=== PATIENT | male | born 1955 | race Caucasian/White ===

== ENCOUNTER 2023-05-14 10:14 | Outpatient (RCR) | payer OTHER, SELFPAY | END 2023-05-16 23:59 | disposition home or self-care (01) | LOC: RPT 10:14 | PROVIDERS: ATTENDING PHYSICIAN Neurological Surgery; FAMILY PHYSICIAN Family Medicine | DX: D49.6 Neoplasm of unspecified behavior of brain (principal); Z73.6 Limitation of activities due to disability | CPT/HCPCS: 97110; 97112; 97530; 97535 ==

== ENCOUNTER 2023-06-27 13:34 | Outpatient (RCR) | payer OTHER, SELFPAY | END 2023-06-27 23:59 | disposition home or self-care (01) | LOC: RST 13:34 | PROVIDERS: ATTENDING PHYSICIAN Psychiatry & Neurology Neurology; FAMILY PHYSICIAN Neurological Surgery | DX: C71.1 Malignant neoplasm of frontal lobe (principal); Z73.6 Limitation of activities due to disability; R26.89 Other abnormalities of gait and mobility; M62.81 Muscle weakness (generalized); Z95.5 Presence of coronary angioplasty implant and graft | CPT/HCPCS: 92507; 92523; 97110; 97112; 97116; 97163; 97167; 97530 ==

== ENCOUNTER 2023-06-30 13:23 | Emergency (ER) | payer OTHER, SELFPAY ==
[2023-06-30 13:45] VITALS: BP 139/83
--- NOTE | 2023-06-30 16:48 | ED.GENMED ---
History of Present Illness
General
Chief Complaint: DVT/Possible Blood Clot
Source: patient
Exam Limitations: none
Time Seen by Provider: 06/30/23 16:36
Travel History
Have you had any contact with someone who has COVID-19?: No
Do you have any symptoms of coronavirus? Fever > 100 degrees, chills, cough, shortness of breath, sore throat, loss of taste or smell, muscle aches, or headache?: No
History of Present Illness
History of Present Illness:
68-year-old male with history of brain cancer being followed at [facility] was several months ago just finished radiation presents complaining of swelling to the right lower extremity getting worse over the past 3 to 4 days. No associated
injury. No associated chest pain or shortness of breath. No prior history of DVT. He is on a baby aspirin. He is on dexamethasone 8 mg daily for his recent brain surgery.
Past History
Past History
ED Past Medical History: Hypercholesterolemia
Social History
Tobacco: Non-smoker
Alcohol: Other (Was previously a heavy drinker but been cutting back over the last 6 months)
Drug: None
Personal:
Living: with family
Employment: Employed
Family History
Family History: Other (Mother with diabetes and hyperlipidemia. Father with hypertension)
Phy Exam
Physical Exam
Physical Exam:
General: Well-appearing male no acute respiratory distress
HEENT: Normocephalic atraumatic
Heart: Regular rate and rhythm no murmurs
Lungs: Clear to auscultation bilaterally no wheezing
Extremities: Edema noted right lower extremity from the knee down this is mild. No calf tenderness. No discomfort upon palpation of the popliteal space of the right knee.
Skin: Overlying skin is without erythema or fluctuance. No lymphangitis
Vascular: 2+ dorsalis pedis pulse right foot right leg with good color
Course
Orders/Labs/Results
Orders:
Orders
06/30/23 13:50
Periph Venous Lwr Ext Rt US [US Periph Venous LOWER Ext RT] Urgent
Comment:
Reason For Exam: swelling
06/30/23 17:12
Apixaban [Eliquis] 10 mg PO NOW STA
Vital Signs
Initial and Last Documented VS:
Initial Vital Signs
Temp Pulse Resp BP Pulse Ox
98.2 F 79 20 139/83 95
06/30/23 13:45 06/30/23 13:45 06/30/23 13:45 06/30/23 13:45 06/30/23 13:45
Last Documented Vital Signs
Temp Pulse Resp BP Pulse Ox
98.2 F 70 18 139/74 95
06/30/23 13:45 06/30/23 17:55 06/30/23 17:55 06/30/23 17:55 06/30/23 17:55
MDM/Problems Addressed
Differential Diagnosis Includes:
Swelling to right leg. Differential could include dependent edema versus DVT versus Dickson's cyst. No clinical concern for cellulitis.
Ultrasound right lower extremity pending
*Critical Care Note
Total Time (30-74mins, 75-104mins- exclusive of procedures): Not Applicable
Update Note
Update Note:
Ultrasound right lower extremity demonstrates evidence of DVT. Patient is several months out from her brain surgery. Benefits of treating the DVT outweigh the potential risks. Started on Eliquis 10 mg twice a day for a week. He is seeing a
specialist this coming week I advise he follow-up with them regarding this. Return precautions were given including signs of bleeding from gastrointestinal tract or tract. I also advised him to avoid NSAIDs. He was told to stop his baby
aspirin as well
ED Attending Note
-
Portions of this chart may have been created with voice recognition software.� Occasional wrong word or��sound alike� substitutions may have occurred due to the inherent limitations of voice recognition software.
Discharge Plan
Departure
Patient Disposition: Home (Routine Discharge)
Date of Disposition: 06/30/23
Time of Disposition: 17:21
Patient with high blood pressure during this ER visit?: No
Discharge Problem:
DVT (deep venous thrombosis)
Instructions: Deep Vein Thrombosis (Blood Clots in the Legs) (DC)
Prescriptions:
New
Eliquis 5 mg tablet
5 mg PO BID Qty: 60 0RF
Rx Instructions:
Take 10mg twice a day for one week. Then decrease to 5mg twice a day
No Action
atorvastatin 80 MG tablet
80 mg PO QPM Qty: 90 3RF
aspirin 81 MG tablet,delayed release (DR/EC)
81 mg PO DAILY Qty: 30 0RF
metoprolol succinate 25 MG tablet extended release 24 hr
25 mg PO DAILY Qty: 90 3RF
Interventions
Interventions:
*Risk Screen - Suicide Last Done: 06/30/23 17:01
*General Assessment Last Done: 06/30/23 17:01
*Neglect/Abuse Screening Last Done: 06/30/23 17:01
ED- Fall Risk Assessment Last Done: 06/30/23 17:01
*ED COVID-19 Vaccine History Last Done: 06/30/23 17:01
*Nursing Disposition Last Done: 06/30/23 17:55
ED- Cardiac Assessment Last Done: 06/30/23 17:01
ED- Pulmonary Assessment Last Done: 06/30/23 17:01
ED-Peripheral Vascular Assessment Last Done: 06/30/23 17:01
ED-Skin Assessment Last Done: 06/30/23 17:01
Discharge Date and Time
Discharge Date/Time: 06/30/23 17:55
[2023-06-30 17:01] VITALS: BMI 32.4
[2023-06-30 17:15] VITALS: BP 139/74
[2023-06-30] MEDS: ELIQUIS 10 MG PO (17:19)
[2023-06-30 17:55] VITALS: BP 139/74
--- NOTE | 2023-06-30 17:55 | EDRN ---
Reviewed discharge instructions with patient and his . Verbalized understanding. Taken to car in wheelchair.
== END 2023-06-30 17:55 | disposition home or self-care (01) ==
LOC: EMR 13:23
PROVIDERS: EMERGENCY PHYSICIAN Student in an Organized Health Care Education/Training Program; FAMILY PHYSICIAN Family Medicine
DX: I82.401 Acute embolism and thrombosis of unspecified deep veins of right lower extremity (principal); R60.0 Localized edema; C71.9 Malignant neoplasm of brain, unspecified; E78.00 Pure hypercholesterolemia, unspecified; Z92.3 Personal history of irradiation; Z98.890 Other specified postprocedural states; Z79.82 Long term (current) use of aspirin
CPT/HCPCS: 99284; 93971

== ENCOUNTER 2023-07-11 04:56 | Inpatient (IN) | payer OTHER, SELFPAY ==
[2023-07-11] VITALS (7 sets, daily range): BP systolic 125–200; BP diastolic 81–107; PULSE 79; O2SAT 95; BMI 32.2
--- NOTE | 2023-07-11 03:08 | ED.GENMED ---
History of Present Illness
<MARY Friend - Last Filed: 07/11/23 03:31>
General
Chief Complaint: Seizure
Source: patient and spouse
Time Seen by Provider: 07/11/23 02:59
Nursing documentation reviewed up to this point in time: agreed with
Travel History
Have you had any contact with someone who has COVID-19?: No
Do you have any symptoms of coronavirus? Fever > 100 degrees, chills, cough, shortness of breath, sore throat, loss of taste or smell, muscle aches, or headache?: No
History of Present Illness
History of Present Illness:
68 y/o M with history of brain tumor presents to ED after seizure. Patient had seizure around 1:30am today. reports patient seizure lasted for about 30 seconds. He did not lose consciousness but was disoriented afterwards. reports he was
breathing through his mouth. Patient is currently on chemo for his brain tumor. He was started on 5 days on, 23 days off. He was also startd on an increased steroid dose last week due to brain swelling. Yesterday was his first day off chemotherapy.
does report patient had a palpitation 2 days ago but states it disappeared when he laid on his side. He currently denies headache, dizziness, chest pain, palpitations, or blurry vision.
Past History
<MARY Friend - Last Filed: 07/11/23 03:31>
Past History
ED Past Medical History: Hypercholesterolemia
Social History
Tobacco: Non-smoker
Alcohol: Other (Was previously a heavy drinker but been cutting back over the last 6 months)
Drug: None
Personal:
Living: with family
Employment: Employed
Family History
Family History: Other (Mother with diabetes and hyperlipidemia. Father with hypertension)
Phy Exam
<MARY Friend - Last Filed: 07/11/23 03:31>
General Physical Exam
General Presentation: well appearing and no apparent distress
General age: appears stated age
General Skin: warm
General Habitus: normal
General Mental: alert
General Hydration: appears well hydrated
ENT Exam
ENT Exam: EOMI
Eye Exam
Eye Exam: PERRL, EOMI, conjunctiva normal and other (no nystagmus )
Cardiovascular Exam
Cardiovascular Exam: regular rate/rhythm, no edema, no gallop and no murmur
Pulmonary Exam
Pulmonary Exam: lungs clear and no respiratory distress
Neurological Exam
Neurological Exam: alert and oriented x3
Course
<MARY Friend - Last Filed: 07/11/23 03:31>
Orders/Labs/Results
Orders:
Orders
07/11/23 02:56
Electrocardiogram (*1) Urgent
Reason for Study: Other
Other Reason for Exam: Possible Stroke
Cardiac Monitoring- Treatment ONCE
EKG- Treatment ONCE
IV Insert/Care/Rem.- Treatment PRN
Vital Signs As Directed
Frequency: Other
Weight As Directed
Frequency: Once
Comment: ZERO STRETCHER SCALE FOR ACCURATE WEIGHT
O2 Therapy [RESP] Urgent
Titrate/Wean O2 to maintain O2 sat greater than (%): 93
Special Instructions: MAINTAIN CONTINUOUS O2 SATS > OR = 93%
07/11/23 03:00
CT Head W/o Iv Contrast Urgent
Comment:
Reason For Exam: known glio, weakness
07/11/23 03:30
Complete Blood Count/With Diff Urgent
Comprehensive Metabolic Panel Urgent
PTT Urgent
Prothrombin Time Urgent
Troponin I Urgent
07/11/23 04:01
Levetiracetam Injectable [Keppra] 1,000 mg IV NOW STA
07/11/23 04:11
Admit/Transfer Patient As Directed
Co-Sign Provider:
Level of Care: Inpatient admission
Assign to:: Telemetry
Physician / Group: htay
Diagnosis: New onset SZ
Reason for Telemetry: Other
Other Reason for Telemetry: New onset SZ , Rt sided cerebral edema
Date to Stop Telemetry: 07/13/23
Time to Stop Telemetry: 11:00
Reason for Hospitalization: New onset SZ
Expected length of stay greater than two midnights?: Yes
ELOS- Estimated Length of Stay in days: 3
I certify the patient meets the requirements for IP care: Yes
07/11/23 05:33
HydrALAZINE [Apresoline] 10 mg IV Q4HPRN PRN
07/11/23 05:33
Consult Notification Routine
Specialty to Notify: Neurology
NEUROLOGY CONSULT Routine
Consulting Provider: Karin Green
Was physician already notified: No
Reason for consult: Witnessed new onset SZ-HX Glioblastoma resected - s/p XRT, on chemo+ Dexa
07/11/23 06:00
EEG Routine IN AM
Reason for Exam: new onset Sz
Ondansetron HCl [Zofran] 8 mg PO Q8H
07/11/23 08:00
Apixaban [Eliquis] 5 mg PO BID
Dexamethasone [Decadron] 8 mg PO DAILY
Levetiracetam [Keppra] 500 mg PO BID
Metoprolol Xl [Toprol Xl] 25 mg PO DAILY
07/11/23 18:00
Atorvastatin [Lipitor] 80 mg PO QPM
Dexamethasone [Decadron] 6 mg PO QPM
07/13/23 11:00
DC Protocol for Telemetry ONCE
Abnormal Lab Results
07/11/23
03:30
Plt Count 91 L 10^3/uL
(130-400)
Abs Immat Gran (auto) 0.6 H 10^3/uL
(0-0.05)
Absolute Neuts (auto) 9.2 H 10^3/uL
(1.4-6.5)
Absolute Lymphs (auto) 0.5 L 10^3/uL
(1.2-3.4)
Immature Gran % 6.0 H %
(0-0.5)
Neutrophils % 85.7 H %
(42.2-75.2)
Lymphocytes % 4.5 L %
(20.5-51.1)
APTT 23.3 L Sec
(23.4-35.0)
Sodium 134 L mmol/L
(135-145)
BUN 26 H mg/dl
(9-20)
Creatinine 0.6 L mg/dL
(0.7-1.3)
Glucose 184 H mg/dl
(70-99)
Total Bilirubin 1.4 H mg/dl
(0.2-1.3)
ALT 79 H U/L
(0-50)
Total Protein 5.7 L g/dl
(6.3-8.2)
Albumin 3.3 L g/dl
(3.5-5.0)
07/11/23 03:30
07/11/23 03:30
Vital Signs
Initial and Last Documented VS:
Initial Vital Signs
Temp Pulse Resp
97.6 F 80 19
07/11/23 02:52 07/11/23 02:52 07/11/23 02:52
Last Documented Vital Signs
Temp Pulse Resp BP Pulse Ox
97.6 F 64 18 157/89 93
07/11/23 05:54 07/11/23 05:54 07/11/23 05:54 07/11/23 05:54 07/11/23 05:54
<Wilfrid Laureano DO - Last Filed: 07/11/23 06:41>
Orders/Labs/Results
Orders:
Orders
07/11/23 02:56
Electrocardiogram (*1) Urgent
Reason for Study: Other
Other Reason for Exam: Possible Stroke
Cardiac Monitoring- Treatment ONCE
EKG- Treatment ONCE
IV Insert/Care/Rem.- Treatment PRN
Vital Signs As Directed
Frequency: Other
Weight As Directed
Frequency: Once
Comment: ZERO STRETCHER SCALE FOR ACCURATE WEIGHT
O2 Therapy [RESP] Urgent
Titrate/Wean O2 to maintain O2 sat greater than (%): 93
Special Instructions: MAINTAIN CONTINUOUS O2 SATS > OR = 93%
07/11/23 03:00
CT Head W/o Iv Contrast Urgent
Comment:
Reason For Exam: known glio, weakness
07/11/23 03:30
Complete Blood Count/With Diff Urgent
Comprehensive Metabolic Panel Urgent
PTT Urgent
Prothrombin Time Urgent
Troponin I Urgent
07/11/23 04:01
Levetiracetam Injectable [Keppra] 1,000 mg IV NOW STA
07/11/23 04:11
Admit/Transfer Patient As Directed
Co-Sign Provider:
Level of Care: Inpatient admission
Assign to:: Telemetry
Physician / Group: htay
Diagnosis: New onset SZ
Reason for Telemetry: Other
Other Reason for Telemetry: New onset SZ , Rt sided cerebral edema
Date to Stop Telemetry: 07/13/23
Time to Stop Telemetry: 11:00
Reason for Hospitalization: New onset SZ
Expected length of stay greater than two midnights?: Yes
ELOS- Estimated Length of Stay in days: 3
I certify the patient meets the requirements for IP care: Yes
07/11/23 05:33
HydrALAZINE [Apresoline] 10 mg IV Q4HPRN PRN
07/11/23 05:33
Consult Notification Routine
Specialty to Notify: Neurology
NEUROLOGY CONSULT Routine
Consulting Provider: Karin Green
Was physician already notified: No
Reason for consult: Witnessed new onset SZ-HX Glioblastoma resected - s/p XRT, on chemo+ Dexa
07/11/23 06:00
EEG Routine IN AM
Reason for Exam: new onset Sz
Ondansetron HCl [Zofran] 8 mg PO Q8H
07/11/23 08:00
Apixaban [Eliquis] 5 mg PO BID
Dexamethasone [Decadron] 8 mg PO DAILY
Levetiracetam [Keppra] 500 mg PO BID
Metoprolol Xl [Toprol Xl] 25 mg PO DAILY
07/11/23 18:00
Atorvastatin [Lipitor] 80 mg PO QPM
Dexamethasone [Decadron] 6 mg PO QPM
07/13/23 11:00
DC Protocol for Telemetry ONCE
Abnormal Lab Results
07/11/23
03:30
Plt Count 91 L 10^3/uL
(130-400)
Abs Immat Gran (auto) 0.6 H 10^3/uL
(0-0.05)
Absolute Neuts (auto) 9.2 H 10^3/uL
(1.4-6.5)
Absolute Lymphs (auto) 0.5 L 10^3/uL
(1.2-3.4)
Immature Gran % 6.0 H %
(0-0.5)
Neutrophils % 85.7 H %
(42.2-75.2)
Lymphocytes % 4.5 L %
(20.5-51.1)
APTT 23.3 L Sec
(23.4-35.0)
Sodium 134 L mmol/L
(135-145)
BUN 26 H mg/dl
(9-20)
Creatinine 0.6 L mg/dL
(0.7-1.3)
Glucose 184 H mg/dl
(70-99)
Total Bilirubin 1.4 H mg/dl
(0.2-1.3)
ALT 79 H U/L
(0-50)
Total Protein 5.7 L g/dl
(6.3-8.2)
Albumin 3.3 L g/dl
(3.5-5.0)
07/11/23 03:30
07/11/23 03:30
Vital Signs
Initial and Last Documented VS:
Initial Vital Signs
Temp Pulse Resp
97.6 F 80 19
07/11/23 02:52 07/11/23 02:52 07/11/23 02:52
Last Documented Vital Signs
Temp Pulse Resp BP Pulse Ox
97.6 F 64 18 157/89 93
07/11/23 05:54 07/11/23 05:54 07/11/23 05:54 07/11/23 05:54 07/11/23 05:54
<Wilfrid Laureano DO - Last Filed: 07/11/23 06:41>
*Critical Care Note
Total Time (30-74mins, 75-104mins- exclusive of procedures): Not Applicable
<Wilfrid Laureano DO - Last Filed: 07/11/23 06:41>
Update Note
Update Note:
CT HEAD
IMPRESSION:
Since prior dated 03/18/2023, there has been interval increase in hypodensity and likely edema throughout the left cerebral hemisphere. Effacement of the left lateral ventricle. No significant midline shift. No acute hemorrhage, herniation, or
hydrocephalus. Findings could be further characterized with MRI as clinically indicated.
Evidence of prior left frontal craniotomy.
ED Attending Note
<MARY Friend - Last Filed: 07/11/23 03:31>
-
Portions of this chart may have been created with voice recognition software.� Occasional wrong word or��sound alike� substitutions may have occurred due to the inherent limitations of voice recognition software.
<Wilfrid Laureano DO - Last Filed: 07/11/23 06:41>
ED Attending Note
Patient seen and examined by attending physician: Yes
I performed the substantive portion of visit, reviewed & personally made and approve the management plan that is documented in note by myself or DARCIE.: Yes
ED Attending Note:
This is a pleasant 68-year-old male that presents with new onset seizure tonight. Seizure began around 1:30 AM. reports that the seizure lasted about 30 seconds. Patient sustained a postictal period. Patient is on chemotherapy for a
glioblastoma. Patient had brain swelling last week and was started on a steroid. Patient is on Eliquis for DVT. Patient was seen in conjunction with the PA student. I have reviewed and agree with the history and treatment plan presented. On my
independent physical exam, patient is awake, alert, and somewhat confused. He does have some right-sided weakness. Heart is regular rate and rhythm. Lungs are clear to auscultation bilaterally without wheezes rales or rhonchi.
Vital signs are stable. Patient not hypoxic
Nursing note reviewed. I agree with nursing documentation up to this point in time.
Home Meds and allergies reviewed.
NUMBER AND COMPLEXITY OF PROBLEMS ADDRESSED AT THE ENCOUNTER
� Chronic conditions affecting care:
� Acute Exacerbation and/or Progression of Chronic Illness:
� Differential Diagnosis includes:
AMOUNT AND/OR COMPLEXITY OF DATA TO BE REVIEWED AND ANALYZED
I performed an independent evaluation of the following and my interpretation is:
EKG:
CT:CT HEAD
IMPRESSION:
Since prior dated 03/18/2023, there has been interval increase in hypodensity and likely edema throughout the left cerebral hemisphere. Effacement of the left lateral ventricle. No significant midline shift. No acute hemorrhage, herniation, or
hydrocephalus. Findings could be further characterized with MRI as clinically indicated.
Evidence of prior left frontal craniotomy.
X-rays:
Ultrasound:
Laboratory Studies:
Other:
Review of other/old records: Previous CT angiogram
Clinical information was obtained by an independent historian:
Prescriptions/Medications Considered but not given:
Further testing considered but not performed:
RISK OF COMPLICATIONS AND/OR MORBIDITY OR MORTALITY OF PATIENT MANAGEMENT
Social determinants of health affecting care: Good Social Support
Discussion with other providers: Hospitalist for admission
Escalation of care including admission/observation vs risk of discharge considered: New onset seizure in the setting of a brain tumor. Patient to be admitted
CRITICAL CARE NOTE: Not applicable
Total Time (exclusive of procedures):
Update:
Discharge Plan
Departure
Patient Disposition: Admit
Date of Disposition: 07/11/23
Time of Disposition: 04:02
Admit to: Telemetry
Presentation/result/management discussed w/ accepting MD/DO: Hospitalist
Condition: Fair
Discharge Problem:
New onset seizure
Interventions
Interventions:
*Risk Screen - Suicide Last Done: 07/11/23 02:52
*General Assessment Last Done: 07/11/23 02:52
*Neglect/Abuse Screening Last Done: 07/11/23 02:52
ED- Fall Risk Assessment Last Done: 07/11/23 02:57
*ED COVID-19 Vaccine History Last Done: 07/11/23 02:52
*Nursing Disposition Last Done: 07/11/23 05:30
ED- Cardiac Assessment Last Done: 07/11/23 02:57
ED- Neurological Assessment Last Done: 07/11/23 04:33
ED- Pulmonary Assessment Last Done: 07/11/23 02:57
Discharge Date and Time
Discharge Date/Time: 07/11/23 05:30
[2023-07-11 03:36] LABS: % Basophils 0.4 % (0-2); % Lymphocytes 4.5 % (20.5-51.1); % Monocytes 3.4 % (1.7-9.3); % Neutrophils 85.7 % (42.2-75.2); Absolute Immature Granulocytes 0.6 10^3/uL (0-0.05); Absolute Lymphocytes 0.5 10^3/uL (1.2-3.4); Absolute Monocytes 0.4 10^3/uL (0.1-0.6); Absolute Neutrophils 9.2 10^3/uL (1.4-6.5); Hematocrit 42.7 % (39.0-52.0); Hemoglobin 15.6 g/dL (13.0-18.0); Mean Corp Hgb Conc. 36.5 g/dL (33.0-37.0); Mean Corpuscular Hgb 30.4 pg (27.0-31.0); Mean Corpuscular Volume 83.1 fL (80.0-94.0); Mean Platelet Volume 8.5 fL (7.4-10.4); Nucleated Red Blood Cells % 0.2 % (-); Platelet Count 91 10^3/uL (130-400); Red Blood Cell Count 5.14 10^6/uL (4.70-6.10); Red Cell Dist. Width 13.4 % (11.5-14.5); White Blood Cell Count 10.7 10^3/uL (4.8-10.8)
[2023-07-11 03:49] LABS: APTT 23.3 Sec (23.4-35.0); INR 1.15; PT 14.6 Sec (11.4-14.6)
--- NOTE | 2023-07-11 03:51 | HPS.HSE ---
Family Physician
-
Family Physician:
Chief Complaint
-
Sz at home
History of Present Illness
68M HX brain tumor / Glioblastoma seen at ER for new onset of witnessed seizure.
reports patient seizure lasted for about 30 seconds. He did not lose consciousness but was disoriented afterwards. reports he was started on chemo yesterday.
Currently on chemo on 5 days on, 23 days off.
He was also started on an increased steroid dose last week due to brain swelling.
does report patient had a palpitation 2 days ago but states it disappeared when he laid on his side.
ROS
denies headache, dizziness, chest pain, palpitations, or blurry vision.
Medical History
Past Medical History
Past Medical History: Reports Cancer (brain tumor ) and Hypercholesterolemia
Past Surgical History: Reports Brain (s/p gamma knife resection of brain tumor at [facility] )
Social History
Tobacco: Non-smoker
Alcohol: None
Personal:
Living: With Family
Family History
Family History: Not pertinent
Allergies / Home Medications
Allergies reflects when Allergies were last updated in [facility].
Home Medications with original date entered in [facility]
Allergy/Medication List:
Allergies
Allergy/AdvReac Type Severity Reaction Status Date / Time
No Known Allergies Allergy Verified 07/11/23 02:52
Home Medications
aspirin 81 mg tablet,delayed release 81 mg PO DAILY ##30 09/03/15
atorvastatin 80 mg tablet 80 mg PO QPM ##90 09/03/15
metoprolol succinate 25 mg tablet,extended release 24 hr 25 mg PO DAILY ##90 09/03/15
apixaban 5 mg tablet (Eliquis) 5 mg PO BID #60 tabs 06/30/23
Review of Systems
-
Constitutional: Reports No Symptoms
EENT: Reports No Symptoms
Respiratory: Reports No Symptoms
Cardiac: Reports No Symptoms
Abdomen/GI: Reports No Symptoms
: Reports No Symptoms
Musculoskeletal: Reports No Symptoms
Skin: Reports No Symptoms
Neurological: Reports See HPI
Endocrine: Reports No Symptoms
Hematologic/Lymphatic: Reports No Symptoms
Psych: Reports No Symptoms
Physical Exam
Vital Signs
Vital Signs
Temp Pulse Resp BP Pulse Ox
97.6 F 68 19 189/105 95
07/11/23 02:52 07/11/23 03:45 07/11/23 02:52 07/11/23 03:00 07/11/23 03:45
Physical Exam
General: Other (see below )
Laboratory Results
-
07/11/23 03:30
Data Reviewed
-
CT Scan: Discussed with Physician
Lab Data: Labs Reviewed by me
Impression/Plan
-
Reviewed VS: Afebrile BP 200/107 HR 80
PE
Gen: no apparent distress , sitting and conversational
HEENT: anicteric
Neck: sipple
Lungs: CTA
Cor: RRR S1
Abdomen: soft NT NG
STATE EDITOR: AAO3.Known Rt sided hemiparesis s/p Brain tumor resection
MS: no edema
Psych: appropiate
Data
Unremarkable CBC
HCT
EKG report
NORMAL SINUS RHYTHM
NONSPECIFIC ST ABNORMALITY
ABNORMAL ECG
09/09/20 TTE
LVEF 55-6-
Stage I DD
Nl RV size and function
HCT:
Since prior dated 03/18/2023, there has been interval increase in hypodensity and likely edema throughout the left cerebral hemisphere.
Effacement of the left lateral ventricle.
No significant midline shift.
No acute hemorrhage, herniation, or hydrocephalus.
Findings could be further characterized with MRI as clinically indicated.
Evidence of prior left frontal craniotomy.
No prior hospitalist admission:
ASSESSMENT & PLAN
Witnessed new onset SZ suspect tonic clonic Sz - provoked
S/P post ictal
- HCT
- admission labs
- EEG
- cont. Keppra
- Neuro consult
HX Glioblastoma - currently on escaladed dose of Decadronsince last week due to interval increase in edema throughout the left cerebral hemisphere.
s/p gamma knife resection at [place] s/p XRT and oral chemo
Just started chemo 07/10/22 - 5 days on, 23 days off.
P Oncologist and Neuro surgeon at [facility] [place]
Rad Onc at
Known Rt sided hemiparesis s/p Brain tumor resection
- cont escaladed dose Decadron 8mg am + 6 mg pm
HTN urgency
No prior HX Essential HTN
- await HCT
- cont PT Metoprolol
- add IV Hydralazine PRN
HLD on Atorvastatin
Rt Leg DVT 1 week ago
Known Rt sided hemiparesis s/p tumor resection
- cont Eliquis
- No longer on ASA
DVT Px: on Eliquis
Code: Full
IP TLM
[2023-07-11 04:08] LABS: ALT (SGPT) 79 U/L (0-50); AST (SGOT) 38 U/L (17-59); Albumin 3.3 g/dl (3.5-5.0); Alkaline Phosphatase 65 U/L (38-126); Blood Urea Nitrogen 26 mg/dl (9-20); Calcium 8.9 mg/dl (8.4-10.2); Carbon Dioxide 26 mmol/L (22-30); Chloride 99 mmol/L (98-107); Glucose 184 mg/dl (70-99); Potassium 4.1 mmol/L (3.5-5.1); Sodium 134 mmol/L (135-145); Total Bilirubin 1.4 mg/dl (0.2-1.3); Total Protein 5.7 g/dl (6.3-8.2); eGFR > 60.00
[2023-07-11] MEDS: KEPPRA 1000 MG IV (04:15)
[2023-07-11 04:16] LABS: Troponin I < 0.012 ng/ml
[2023-07-11] MEDS: ZOFRAN PO (05:53)
--- NOTE | 2023-07-11 05:56 | PTCARENOTE ---
Recieved pt from ER at 0540. Pt stood and pivoted to bed due to R sided weakness. AAOx3, VSS. Oriented to room, call cruz and plan of care.
--- NOTE | 2023-07-11 08:55 | CON.NEURO4 ---
Addendum entered and electronically signed by Manuel Cui MD 07/11/23 11:24:
Studies reviewed.
I have personally examined the patient. I reviewed and agree with the SUPPLY CHAIN INTERN's Note.
My addenda:
Awake, alert, interactive. No acute distress.
Speech intact.
Follows 2-step requests w/o difficulty. No tremor.
Extra-ocular movements grossly intact.
Facial movements full and symmetric. Hearing intact to normal conversational volume.
Normal UE movements bilaterally.
Neck: full ROM.
Chest: no dyspnea
Heart: no JVD
Ext: (-) Clubbing, (-) Cyanosis, (-) Edema
IMPRESSIONS/RECOMMENDATIONS:
Abrupt onset of right hemibody seizures suggestive of focal onset seizure most likely secondary to the patient's prior diagnosis of left frontoparietal glioblastoma with prior resection, chemotherapy, and radiation therapy
Increase newly initiated levetiracetam from 500 mg twice a day to dosing of 1000 mg twice a day
Continue dexamethasone
Continue this for recent deep vein thrombosis
Rehabilitation evaluations
Will continue to follow as needed.
Original Note:
Consultation - Neurology 4
-
CONSULTING PHYSICIAN: Manuel Cui MD
REFERRING PHYSICIAN: Hospitalists/Dr. Interiano
DICTATED BY: JOSUE Small
DATE/TIME OF REQUEST: 07/11/23
DATE/TIME OF CONSULTATION: 07/11/23
Reason for Consultation: Seizure
History of Present Illness:
This is a 68-year-old right-handed male who has presented to the hospital with report of seizure at home. Patient is a poor historian and some of this information is obtained from medical records. Patient initially presented to ER on 03/18/23
with report of a two week history of right-sided weakness affecting his ability to kayak and golf, then ultimately he couldn't use a nail clipper with his right hand, prompting him to go to the ER for evaluation. CT head demonstrated a malignant
left frontal lobe brain tumor and he was transferred to [place]. He deferred enrollment in the IMVAX trial and elected to undergo crani for near-total tumor resection by Dr. Duff on 03/21/23. Pathologist was consistent with GBM. He started
chemoradiation on 04/23/23. At an unclear time, patient was found to have a RLE DVT and was started on Eliquis. Additionally, last week his Decadron dosage was increased due to increased vasogenic edema.
This morning around 0130, patient's witnessed the patient having seizure-like activity lasting 30 seconds. Per the patient, he had right body shaking, bit his tongue, and was more disoriented than baseline after the episode. He denies any
bowel/bladder incontinence. This is the first time he has had any events like this and he has had no further events since. Currently, he feels back at his baseline. He denies any headache, dizziness, vision changes, speech/swallow difficulty,
numbness, new weakness, chest pain, palpitations, and shortness of breath. He endorses chronic forgetfulness/confusion and right-sided weakness.
Past Medical History: Left frontal GBM, HTN, HLD, CAD
Surgical History: Cardiac stents
Family History: Reviewed and noncontributory.
Social History: Former heavy drinking. Denies tobacco and illict drug use.
Allergies: No known allergies.
Home Medications: See below.
Review of Symptoms:
Patient denies any fever, headache, chest pain, shortness of breath, GI or symptoms.
�Per the HPI.�All systems are reviewed negative except above.
Physical Exam:
The patient is afebrile, abdomen is nondistended, breathing is unlabored, skin is warm and dry, no edema. +Tongue laceration left tip and right side.
Neurologic Examination:
The patient is awake, alert and oriented x 3 to orientation questions but very forgetful/confused conversation. He is able to follow commands and answer questions appropriately. Moderate difficulty with two-step commands. There is no aphasia or
dysarthria. On cranial nerve assessment, pupils are 3 mm bilateral, round and reactive to light and accommodation. Visual morales are full. Extraocular movements are intact. +Nystagmus beating left. Facial sensations are intact and bilaterally
symmetrical, there is no facial asymmetry. Hearing is intact bilaterally to normal conversation volume. Tongue palate and uvula are midline. +Tongue laceration left tip and right side. Sternocleidomastoid strengths are full bilaterally. Motor
strengths are 5/5 left upper, 5-/5 right upper, 5-/5 right lower, and 5/5 left lower extremities on medical research [place] scale. There is drift in the RUE and RLE. No involuntary movement noted. Deep tendon reflexes are 2+ bilateral upper and
lower extremities and Babinski is absent bilaterally. Sensations of temperature vibration is mildly reduced in distal upper/lower extremities. There was no extinction noted on double simultaneous stimulation. Coordination is intact by finger to
nose bilaterally.
Lab Results: See below.
Neuro Imaging:
1. CT Head 07/11/23: Despite new left frontal craniotomy, with a 4.5 cm left frontal tumor remains present and is associated with significantly worsened vasogenic edema and mass effect compared with previous examination.
2. EEG 07/11/23: Final report pending.
Differentials for the patient's presentation include:
1. Seizure, well-controlled, without status epilepticus.
2. Left frontal GBM with vasogenic edema.
3. RLE DVT
Patient has the following risk factors for their symptoms: GBM
Recommendations:
-Newly initiated levetiracetam increased to 1000mg q12hrs.
-Routine EEG ordered/pending.
-Continue dexamethasone 8mg AM, 6mg PM.
-Do not see a role for further neurological imaging at this time.
-Patient should follow-up with Neurosurgery at [place] and update them about this event.
Discussed patient care with: Dr. Cui, the patient
Vital Signs and Labs
-
Vital Signs and Labs:
Vital Signs
Temp Pulse Resp BP Pulse Ox
97.5 F 60 14 150/97 95
07/11/23 07:10 07/11/23 09:39 07/11/23 07:10 07/11/23 09:39 07/11/23 08:00
Lab Results
07/11/23 03:30
07/11/23 03:30
PT 14.6 Sec (11.4-14.6) 07/11/23 03:30
INR 1.15 07/11/23 03:30
APTT 23.3 Sec (23.4-35.0) L 07/11/23 03:30
Sodium 134 mmol/L (135-145) L 07/11/23 03:30
Potassium 4.1 mmol/L (3.5-5.1) 07/11/23 03:30
BUN 26 mg/dl (9-20) H 07/11/23 03:30
Glucose 184 mg/dl (70-99) H 07/11/23 03:30
Calcium 8.9 mg/dl (8.4-10.2) 07/11/23 03:30
Medications
-
Active Medications
Generic Name Dose Route Start Last Admin
Trade Name Freq PRN Reason Stop Dose Admin
Apixaban 5 mg 07/11/23 08:00 07/11/23 09:38
Apixaban (Eliquis) 5 Mg Tablet PO 08/08/23 07:59 5 mg
BID MIRTA Administration
Atorvastatin Calcium 80 mg 07/11/23 18:00
Atorvastatin (Lipitor) 80 Mg Tablet PO 08/08/23 17:59
QPM MIRTA
Dexamethasone 8 mg 07/11/23 08:00 07/11/23 09:37
Dexamethasone 4 Mg Tablet PO 08/08/23 07:59 8 mg
DAILY MIRTA Administration
Dexamethasone 6 mg 07/11/23 18:00
Dexamethasone 4 Mg Tablet PO 08/08/23 17:59
QPM MIRTA
Hydralazine HCl 10 mg 07/11/23 05:33
Hydralazine 20 Mg/Ml Vial IV 08/08/23 05:32
Q4HPRN PRN
SBP > 165, DBP > 110
Levetiracetam 1,000 mg 07/11/23 08:09
Levetiracetam 500 Mg Regular Release Tablet PO 08/08/23 07:59
BID MIRTA
Metoprolol Succinate 25 mg 07/11/23 08:00 07/11/23 09:39
Metoprolol 25 Mg Extended Release Tablet PO 08/08/23 07:59 25 mg
DAILY MIRTA Administration
Ondansetron HCl 8 mg 07/11/23 06:00 07/11/23 05:53
Ondansetron 4 Mg Tablet PO 08/08/23 05:59 Not Given
Q8H MIRTA
Sodium Chloride 0 flush 07/11/23 06:00
Sodium Chloride 0.9% (Flush) Syringe IV 08/08/23 05:59
PER PROTOCOL MIRTA
Home Medications
Medication Instructions Recorded
metoprolol succinate 25 mg 25 mg PO DAILY ##90 09/03/15
tablet,extended release 24 hr
apixaban 5 mg tablet (Eliquis) 5 mg PO BID #60 tabs 06/30/23
atorvastatin 80 mg tablet 80 mg PO DAILY 07/11/23
dexamethasone 6 mg tablet 6 mg PO DAILY 07/11/23
famotidine 20 mg tablet 20 mg PO BID 07/11/23
ondansetron HCl 8 mg tablet 8 mg PO Q8H 07/11/23
[2023-07-11] MEDS: DECADRON 8 MG PO (09:37)
[2023-07-11] MEDS: ELIQUIS 5 MG PO (09:38)
[2023-07-11] MEDS: TOPROL XL 25 MG PO (09:39)
[2023-07-11] MEDS: KEPPRA 500 MG PO (09:47)
--- NOTE | 2023-07-11 10:27 | CM ---
Patient seen bedside with Chari, initial assessment completed. Patient reports he resides with his in a multiple story home. Per , they have a first floor set up, two steps to enter home. Patient reports using a cane for ambulation, denies
other DME. Patient current with [facility] with PT/OT and speech, denies SNF. Patient confirms PCP Dr. Murcia, pharmacy used [facility]. CM will continue to follow for discharge planning needs.
Plan; home with VN and .
--- NOTE | 2023-07-11 10:45 | VNURNOTE ---
Patient is current with [facility] since 06/30 w/ SN/PT/ST, will monitor progress and plan at discharge.
--- NOTE | 2023-07-11 12:23 | EEG.RPT ---
Electroencephalogram Report
Recording
Date of EE07/11/23
Type of EEG: Routine
Length of EEG recordin minutes
Done with Video Recording: Yes
Patient Status: Inpatient
Recording Conditions: Awake, Drowsy and Asleep
Hyperventilation Performed: Yes
Photic Stimulation Performed: Yes
Report
LESS THAN 1 HOUR EEG INTERPRETATION:
Unremarkable EEG for age
CLINICAL CORRELATION:
A normal EEG does not rule out a diagnosis of epilepsy. If clinical suspicion for seizure persists, a prolonged recording may be warranted.
Clinical correlation is advised.
METHODS:
A 21 channel digitized electroencephalogram (EEG) was performed using the 10/20 international system of electrode placement and one-lead of ECG recorded. The [employer] quantitative EEG system was utilized.
ELECTROENCEPHALOGRAPHER IMPRESSION(S):
Quality of study
Fair-good due to artifact
Background
There was an unremarkable anterior-posterior voltage gradient of alpha frequency.
With eye opening the background activity changed to a low voltage mixture of frequencies.
There were no significant asymmetries of background activity noted.
Sleep
Drowsiness present
Stage 1 present
Hyperventilation
No activation
Photic Stimulation
No activation
ECG
Normal sinus rhythm
--- NOTE | 2023-07-11 12:40 | W.PN.UPDATE ---
Update Note
Progress Note Update
Seen and examined
Nonbillable note
Images/charts reviewed
No further seizure episode post admission
Neurology evaluated and recommended patient to be maintained on Keppra. No need of EEG.
PT evaluation ordered
Contacted Dr. Vega/primary oncologist at [facility] to update, no call back yet.
Possible discharge later today
[2023-07-11] MEDS: ZOFRAN 8 MG PO (14:31)
--- NOTE | 2023-07-13 07:26 | W.DCSUMMARY ---
Discharge Summary
Discharge Data
Date of Admission: 07/11/23
Date of Discharge: 07/11/23
-
Pending Results: No
Hospital Course
Discharging Physician : Dr Kelvin Murcia
Disposition : To home
Primary care physician : Unknown
Principal Discharge diagnosis :
Seizure episode
Chronic Discharge diagnosis :
History glioblastoma multiforme status post gamma knife resection/radiation and on chemotherapy currently
Essential hypertension
Hyperlipidemia
History of recent right leg deep venous thrombosis on Eliquis
Hospital Course :
Patient is a 68-year-old male with above-mentioned past medical history was brought into ER after having new onset of witnessed seizure. Patient spouse saw patient seizing lasting for 30 seconds. Patient has been diagnosed for glioblastoma in
March 26 and have undergone gamma knife resection, radiation and chemotherapy at this point. Patient primary neurologist/neurosurgery in [facility]. In ER patient had a CT head which showed an interval increase in hypodensity
and edema throughout the left cerebral hemisphere. No acute hemorrhage/herniation or hydrocephalus visible. Patient had an outpatient PET scan recently by primary neurologist and patient was placed on increased dose of dexamethasone for worsening
inflammation. Patient evaluated by neurology services and EEG was done. No major abnormal findings on EEG. Patient was loaded with IV Keppra. Post neurology clearance patient was discharged home on oral Keppra with follow-up with primary
neurologist/oncology at [facility].
Important imaging findings :
None
Procedure findings :
None
Discharge Plan
-
Patient Disposition: Home with Home Care
Discharge Diagnosis/Procedures: Seizure episode, Gliblastoma mutiforme
Condition: Fair
Diet: Regular
Activity: As tolerated
Driving Restrictions: No driving
Bathing Restrictions: OK to Shower
Other Services: VN and PT
Referrals:
Socorro Murcia, [Family Provider] - in one week
Prescriptions:
New
dexamethasone 4 mg Tablet
8 mg PO DAILY Qty: 30 0RF
dexamethasone 4 mg Tablet
6 mg PO QPM Qty: 30 0RF
levetiracetam [Keppra] 1,000 mg tablet
1,000 mg PO BID Qty: 60 1RF
Continued
metoprolol succinate 25 MG tablet extended release 24 hr
25 mg PO DAILY Qty: 90 3RF
Eliquis 5 mg tablet
5 mg PO BID Qty: 60 0RF
Rx Instructions:
Take 10mg twice a day for one week. Then decrease to 5mg twice a day
ondansetron HCl 8 mg Tablet
8 mg PO Q8H
dexamethasone 6 mg Tablet
6 mg PO DAILY
famotidine 20 mg Tablet
20 mg PO BID
atorvastatin 80 MG tablet
80 mg PO DAILY
Discharge Orders:
Discharge Patient (As Directed); Ordered 07/11/23
Ordered By: Kelvin Murcia
Discharge Date and Time
Discharge Date/Time: 07/11/23 15:51
== END 2023-07-11 15:51 | disposition home health service (06) | DRG 101 ==
LOC: 4 WEST ACU 04:56
PROVIDERS: ADMITTING PHYSICIAN Internal Medicine; ATTENDING PHYSICIAN Hospitalist; EMERGENCY PHYSICIAN Student in an Organized Health Care Education/Training Program; FAMILY PHYSICIAN Family Medicine; OTHER PHYSICIAN Psychiatry & Neurology Neurology
DX: R56.9 Unspecified convulsions (principal); I16.0 Hypertensive urgency; E78.00 Pure hypercholesterolemia, unspecified; Z86.718 Personal history of other venous thrombosis and embolism; Z85.841 Personal history of malignant neoplasm of brain; Z79.01 Long term (current) use of anticoagulants
CPT/HCPCS: 70450; 80053; 84484; 85025; 85610; 85730; 93005; 95816; 96374; 97162; 97166; 99285

== ENCOUNTER 2023-07-18 16:30 | Emergency (ER) | payer OTHER, SELFPAY ==
[2023-07-18 16:32] VITALS: BP 171/110
--- NOTE | 2023-07-18 19:13 | ED.GENMED ---
History of Present Illness
General
Chief Complaint: Vascular Symptoms
Source: patient and spouse
Time Seen by Provider: 07/18/23 18:35
Travel History
Have you had any contact with someone who has COVID-19?: No
Do you have any symptoms of coronavirus? Fever > 100 degrees, chills, cough, shortness of breath, sore throat, loss of taste or smell, muscle aches, or headache?: No
History of Present Illness
History of Present Illness:
68-year-old male with past medical history of glioblastoma status post gamma knife and radiation treatment, recently diagnosed right lower extremity DVT, hypertension, hyperlipidemia, previous NE presenting to the emergency department for evaluation
at the request of his primary care doctor with whom patient followed up with after he was admitted at this facility last week, family physician was concerned due to the persistent swelling as well as cool right lower extremity to the touch as well
as difficulty palpating a pulse. notes that patient has been readily compliant with Eliquis. She does note that the swelling seems to be getting a little bit worse. Patient has not had any coughing, chest pain, shortness of breath or any
other concerns. History was obtained from the spouse secondary to patient's current mental status.
Past History
Past History
ED Past Medical History: Cancer (Glioblastoma), HTN, Hypercholesterolemia, NE and Seizures
ED Past Surgical History: Other
Social History
Tobacco: Non-smoker
Alcohol: Other (Was previously a heavy drinker but been cutting back over the last 6 months)
Drug: None
Personal:
Living: with family
Employment: Employed
Family History
Family History: Other (Mother with diabetes and hyperlipidemia. Father with hypertension)
Review of Systems
Review of Systems
All Other Systems: ROS reviewed and negative except as documented in HPI and ROS
Phy Exam
Physical Exam
Physical Exam:
GENERAL: Sleepy but arousable to voice, in no apparent distress
EYE: conjunctiva clear
NECK: Supple, no significant adenopathy.
ENT: o/p clr, mmm.
CARDIAC: Regular rate and rhythm
LUNGS: Clear breath sounds bilaterally, no acute respiratory distress, no wheezes/rales/rhonchi
NEUROLOGICAL: Alert and oriented
SKIN: Lower extremities are cool to the touch bilaterally and dry, skin intact.
MUSCULOSKELETAL: Right lower extremity: Moderate edema diffusely to the knee. Cap refill is roughly 2 seconds. Sensation reportedly intact to light touch. Patient allows for full active and passive range of motion. Difficult time palpating a
dorsalis pedis pulse however this was found with a Doppler however was weak and thready. Easily dopplerable PT pulse.
PSYCH: Normal and appropriate interaction.
Scores
Heart Failure Risk
Heart Failure Risk Score: Not Applicable
Heart Score for Chest Pain Patients
STEMI patient?: Not applicable
Withdrawal Assessment of Alcohol
Withdrawal Assessment Completed?: Not applicable
Course
Orders/Labs/Results
Orders:
Orders
07/18/23 16:53
US Periph Arterial LOWER Ext Urgent
Comment: Sent by primary care who could not palpate pulse.
Reason For Exam: cold foot, h/o DVT, on eliquis.
07/18/23 18:51
US Periph Venous LOWER Ext RT Urgent
Comment:
Reason For Exam: dvt, worsening edema
Vital Signs
Initial and Last Documented VS:
Initial Vital Signs
Temp Pulse Resp BP Pulse Ox
97.4 F 72 16 171/110 97
07/18/23 16:32 07/18/23 16:32 07/18/23 16:32 07/18/23 16:32 07/18/23 16:32
Last Documented Vital Signs
Temp Pulse Resp BP Pulse Ox
97.4 F 71 14 156/96 95
07/18/23 16:32 07/18/23 19:23 07/18/23 19:23 07/18/23 19:23 07/18/23 19:23
MDM/Problems Addressed
Differential Diagnosis Includes:
Worsening DVT, peripheral arterial disease, less likely ischemic limb
MDM/Problems Addressed:
68-year-old male with past medical history of glioblastoma, currently has an appointment scheduled with his oncologist in [place] from August 08, newly diagnosed right lower extremity DVT, recently diagnosed seizure presenting back to the
emergency department at request of primary care physician who had concerns for possible arterial compromise. Patient does have dopplerable pulses however the DP pulse is fairly weak and thready. I would like to order a vascular ultrasound to
evaluate if patient's DVT is worsening despite Eliquis. I discussed the case with Dr. Linares from vascular surgery who is also in agreement with obtaining a arterial ultrasound with KAREN to look for arterial disease.
Chronic conditions affecting care: Cancer and Other (DVT)
*Radiology
Radiology exam reviewed: radiology read reviewed
*Pulse Oximetry
Patient hypoxic: no
*Critical Care Note
Total Time (30-74mins, 75-104mins- exclusive of procedures): Not Applicable
Data Reviewed
Review of Other/Old Records Reveals: Labs, Records, Radiology Studies and Discharge Summary
Source: patient and spouse
Patient Management
Discussion with other providers: [employer]
Escalation/DeEscalation of care consider admission/obs:
Patient's arterial ultrasound shows multiphasic waveforms throughout with no significant stenosis. Vascular ultrasound shows stable DVTs with no progression of DVT. Patient was running out of his initial Eliquis prescription. attempted to
get a refill at primary but for some reason they were unable to do so so I provided patient with an additional 1 month supply. Advised continued outpatient management. Aware of return precautions. Stable for discharge home.
ED Attending Note
-
Portions of this chart may have been created with voice recognition software.� Occasional wrong word or��sound alike� substitutions may have occurred due to the inherent limitations of voice recognition software.
Discharge Plan
Departure
Patient Disposition: Home (Routine Discharge)
Date of Disposition: 07/18/23
Time of Disposition: 22:31
Patient with high blood pressure during this ER visit?: Yes
Discharge Problem:
Deep vein thrombosis (DVT) of right lower extremity
Instructions: Deep Vein Thrombosis (Blood Clots in the Legs) (DC)
Prescriptions:
New
Eliquis 5 mg tablet
5 mg PO BID Qty: 60 0RF
No Action
metoprolol succinate 25 MG tablet extended release 24 hr
25 mg PO DAILY Qty: 90 3RF
Eliquis 5 mg tablet
5 mg PO BID Qty: 60 0RF
Rx Instructions:
Take 10mg twice a day for one week. Then decrease to 5mg twice a day
ondansetron HCl 8 mg Tablet
8 mg PO Q8H
dexamethasone 6 mg Tablet
6 mg PO DAILY
famotidine 20 mg Tablet
20 mg PO BID
atorvastatin 80 MG tablet
80 mg PO DAILY
dexamethasone 4 mg Tablet
8 mg PO DAILY Qty: 30 0RF
dexamethasone 4 mg Tablet
6 mg PO QPM Qty: 30 0RF
levetiracetam [Keppra] 1,000 mg tablet
1,000 mg PO BID Qty: 60 1RF
Referrals:
Socorro Murcia, DO [Family Provider] -
Interventions
Interventions:
*Risk Screen - Suicide Last Done: 07/18/23 18:39
*General Assessment Last Done: 07/18/23 18:39
*Neglect/Abuse Screening Last Done: 07/18/23 18:39
ED- Fall Risk Assessment Last Done: 07/18/23 18:39
*ED COVID-19 Vaccine History Last Done: 07/18/23 18:39
ED- Cardiac Assessment Last Done: 07/18/23 18:39
ED- Pulmonary Assessment Last Done: 07/18/23 18:39
ED-Skin Assessment Last Done: 07/18/23 18:39
[2023-07-18 19:23] VITALS: BP 156/96
== END 2023-07-18 22:41 | disposition home or self-care (01) ==
LOC: EMR 16:30
PROVIDERS: EMERGENCY PHYSICIAN Emergency Medicine; FAMILY PHYSICIAN Family Medicine
DX: I82.401 Acute embolism and thrombosis of unspecified deep veins of right lower extremity (principal); R22.41 Localized swelling, mass and lump, right lower limb; C71.9 Malignant neoplasm of brain, unspecified; I10 Essential (primary) hypertension; E78.00 Pure hypercholesterolemia, unspecified; R56.9 Unspecified convulsions; I25.2 Old myocardial infarction; Z92.3 Personal history of irradiation; Z79.01 Long term (current) use of anticoagulants
CPT/HCPCS: 99284; 93925; 93971

== ENCOUNTER 2023-08-12 03:23 | Inpatient (IN) | payer OTHER, SELFPAY ==
[2023-08-11 17:18] VITALS: BP 141/116
--- NOTE | 2023-08-11 17:55 | ED.GENMED ---
History of Present Illness
General
Chief Complaint: Change in Mental Status
Source: patient and spouse
Exam Limitations: none
Time Seen by Provider: 08/11/23 17:20
Nursing documentation reviewed up to this point in time: agreed with
Travel History
Have you had any contact with someone who has COVID-19?: No
Do you have any symptoms of coronavirus? Fever > 100 degrees, chills, cough, shortness of breath, sore throat, loss of taste or smell, muscle aches, or headache?: No
History of Present Illness
History of Present Illness:
Patient is a 68-year-old man with a history of glioblastoma that was recently resected at [facility] this past March 2023. Patient was brought in by his for increased lethargy over the last 2 to 3 days. His reports that he is having
increased generalized weakness on both sides of his body, increased difficulty getting around, decreased appetite and not drinking fluids. She denies any specific symptoms such as difficulty breathing, vomiting or fever. She does note occasional
nonbloody diarrhea. Patient arise lethargic but is able to answer simple questions. He denies any worsening weakness of his chronic weakness on the right. Patient is followed by Dr. Mercedes Vega at [facility]. His also reports
increased agitation at night. Patient denies all pain including headache, chest pain abdominal pain.
Past History
Past History
ED Past Medical History: Cancer (Glioblastoma), HTN, Hypercholesterolemia, IA and Seizures
ED Past Surgical History: Other
Social History
Tobacco: Non-smoker
Alcohol: Other (Was previously a heavy drinker but been cutting back over the last 6 months)
Drug: None
Personal:
Living: with family
Employment: Employed
Family History
Family History: Other (Mother with diabetes and hyperlipidemia. Father with hypertension)
Review of Systems
Review of Systems
Allergies reviewed?: Yes
Other source history: family
All Other Systems: ROS reviewed and negative except as documented in HPI and ROS
Constitutional: Reports fatigue
EENT: Reports no symptoms
Respiratory: Reports no symptoms
Cardiac: Reports no symptoms
ABD/GI: Reports diarrhea and anorexia
: Reports no symptoms
Musculoskeletal: Reports no symptoms
Skin: Reports no symptoms
Neurological: Reports other (Chronic weakness of right face, right arm and right leg which are unchanged today according to his )
Endocrine: Reports no symptoms
Hematologic/Lymphatic: Reports no symptoms
Psychiatric: Reports no symptoms
Phy Exam
Physical Exam
Physical Exam:
Physical Exam
General: Patient with flat affect, appears lethargic, has a gaze preference to the right, however, he does with some prompting look to the left. Pale appearing
Neck: supple. no meningeal signs. Dry mucous membrane
Heart: s1/s2 regular rate and rhythm, no murmur. equal radial pulses.
Lungs: no acute respiratory distress. clear bilaterally
Abdomen: normal bowel sounds. not tender. no CVAT
Neuro: alert and oriented to place and self. Right facial weakness. 4 out of 5 strength in right arm and right leg which patient and report is his baseline. 5 out of 5 strength in left arm and left leg. Patient
able to follow simple commands. Patient able to answer simple questions. Seems extremely sleepy and lethargic. Does not look uncomfortable however
Skin: no rash
Psychiatric: well kept. Flat affect
Extremities: no edema. no calf tenderness. negative homans. good distal pulses
Course
Orders/Labs/Results
Orders:
Orders
08/11/23 17:19
CT Head W/o Iv Contrast Urgent
Comment:
Reason For Exam: change of mental. brain tumor history
08/11/23 18:01
Electrocardiogram (*1) Urgent
Reason for Study: Fatigue / Weakness
EKG- Treatment ONCE
08/11/23 18:02
CR Chest - 2 Views Urgent
Comment:
Reason For Exam: lethargy
08/11/23 18:16
COVID-19 Antigen Urgent
Source: Nasal Swab
Complete Blood Count/With Diff Urgent
Comprehensive Metabolic Panel Urgent
Keppra (Levetiracetam) [S] Urgent
Lactic Acid Urgent
Lipase Urgent
Monotest Urgent
TSH Urgent
Troponin I Urgent
Influenza A+B Rapid Molecular Urgent
DESTINY Source: Nasal Swab
Specimen Description:
0.9% Sodium Chloride 500 ml [Nss] 500 ml IV BOLUS
08/11/23 18:54
Urinalysis Reflex To Culture Urgent
Date Specimen was Collected: 08/11/23
Time Specimen was Collected: 18:15
08/11/23 19:01
0.9% Sodium Chloride 1000 ml [Nss] 1,000 ml IV BOLUS
08/11/23 19:03
US Abdomen Complete/Upper Urgent
Comment:
Reason For Exam: increased LFTs, MS change
Specimen Description:
08/11/23 19:44
Ammonia Urgent
Blood Culture Q30M
DESTINY Source: Blood/Venous
Specimen Description:
Blood Culture Q30M
DESTINY Source: Blood/Venous
Specimen Description:
08/11/23 21:21
Levetiracetam [Keppra] 1,000 mg PO NOW STA
08/11/23 22:18
Apixaban [Eliquis] 5 mg PO NOW STA
Abnormal Lab Results
08/11/23 08/11/23 08/11/23
18:16 18:54 19:44
RBC 4.49 L 10^6/uL
(4.70-6.10)
Hct 37.0 L %
(39.0-52.0)
Plt Count 63 L 10^3/uL
(130-400)
Abs Immat Gran (auto) 0.3 H 10^3/uL
(0-0.05)
Absolute Lymphs (auto) 0.3 L 10^3/uL
(1.2-3.4)
Immature Gran % 5.0 H %
(0-0.5)
Neutrophils % 88.1 H %
(42.2-75.2)
Lymphocytes % 4.5 L %
(20.5-51.1)
Sodium 131 L mmol/L
(135-145)
Creatinine 0.4 L mg/dL
(0.7-1.3)
Glucose 264 H mg/dl
(70-99)
Lactic Acid 3.8 H mmol/L
(0.7-2.0)
Total Bilirubin 1.5 H mg/dl
(0.2-1.3)
AST 103 H U/L
(17-59)
ALT 530 H* U/L
(0-50)
Alkaline Phosphatase 223 H U/L
(38-126)
Ammonia < 9 L umol/L
(9-30)
Total Protein 5.3 L g/dl
(6.3-8.2)
Albumin 3.2 L g/dl
(3.5-5.0)
TSH 0.24 L uIU/ml
(0.47-4.68)
Urine Ketones 1+ A
(Negative)
Urine Glucose 3+ A
(Negative)
08/11/23 18:16
08/11/23 18:16
Vital Signs
Initial and Last Documented VS:
Initial Vital Signs
Temp Pulse Resp BP Pulse Ox
98.0 F 103 17 141/116 97
08/11/23 17:18 08/11/23 17:18 08/11/23 17:18 08/11/23 17:18 08/11/23 17:18
Last Documented Vital Signs
Temp Pulse Resp BP Pulse Ox
98.0 F 67 13 130/77 97
08/11/23 17:18 08/11/23 22:45 08/11/23 22:45 08/11/23 22:00 08/11/23 22:45
MDM/Problems Addressed
Differential Diagnosis Includes:
Hyponatremia, intracranial hemorrhage, sepsis, seizure
MDM/Problems Addressed:
Patient presents with acute lethargy
Chronic conditions affecting care:
Brain cancer
Acute Exacerbation and/or Progression of Chronic Illness:
Patient could have acute on chronic brain edema from brain cancer
*Radiology
Radiology exam reviewed: preliminary read by ED provider (Possible atelectasis left lower lung base) and radiology read reviewed
*Pulse Oximetry
Patient hypoxic: no
*EKG
Interpreted by ED Provider?: Yes
Interpretation: abnormal
Comparison EKG: changes noted
Rate: normal
Rhythm: sinus
[place]: normal axis
Interval: normal interval
QRS Pattern: normal QRS
Ischemia: non-specific ST changes
*Web Press Operator Assistant Interpretation
Rate: normal
Interpretation: normal
Rhythm: sinus
*Critical Care Note
Total Time (30-74mins, 75-104mins- exclusive of procedures): Not Applicable
Data Reviewed
Review of Other/Old Records Reveals: Discharge Summary (Discharge summary reviewed from hospitalist from 07/2023 when patient was admitted for seizure and started on Keppra)
Source: patient, spouse and previous hospital records
Patient Management
Discussion with other providers: Hospitalist
Escalation/DeEscalation of care consider admission/obs:
I called the answering service of Dr. Pio Vega 3 times and got no return phone call.
Patient's CAT scan shows no acute intracranial changes. Patient and deny cough and clinically does not have pneumonia. It is unclear why patient has acutely elevated LFTs.
ED Attending Note
-
Portions of this chart may have been created with voice recognition software.� Occasional wrong word or��sound alike� substitutions may have occurred due to the inherent limitations of voice recognition software.
Discharge Plan
Departure
Patient Disposition: Admit
Date of Disposition: 08/11/23
Time of Disposition: 23:07
Admit to: Med/Surg
Presentation/result/management discussed w/ accepting MD/DO: Hospitalist
Patient with high blood pressure during this ER visit?: Yes
Condition: Good
Covid-19: Negative COVID-19
Discharge Problem:
Acute lethargy, Acute dehydration, Elevated LFTs
Prescriptions:
No Action
metoprolol succinate 25 MG tablet extended release 24 hr
25 mg PO DAILY Qty: 90 3RF
ondansetron HCl 8 mg Tablet
8 mg PO Q8H PRN (Reason: nausea)
dexamethasone 6 mg Tablet
6 mg PO 2XD
famotidine 20 mg Tablet
20 mg PO BID
atorvastatin 80 MG tablet
80 mg PO DAILY
levetiracetam [Keppra] 1,000 mg tablet
1,000 mg PO BID Qty: 60 1RF
Eliquis 5 mg tablet
5 mg PO BID Qty: 60 0RF
zolpidem [Ambien] 5 mg Tablet
5 mg PO HS PRN (Reason: insomnia)
Referrals:
Socorro Murcia DO [Family Provider] -
Interventions
Interventions:
*Risk Screen - Suicide Last Done: 08/11/23 19:32
*General Assessment Last Done: 08/11/23 19:32
*Neglect/Abuse Screening Last Done: 08/11/23 19:32
ED- Fall Risk Assessment Last Done: 08/11/23 19:32
*ED COVID-19 Vaccine History Last Done: 08/11/23 19:32
ED- Pulmonary Assessment Last Done: 08/11/23 20:43
ED- Neurological Assessment Last Done: 08/11/23 19:32
ED- Cardiac Assessment Last Done: 08/11/23 21:42
ED Swallowing Screen Last Done: 08/11/23 22:15
[2023-08-11 18:00] VITALS: BP 108/71
[2023-08-11] MEDS: NSS 500 IV (18:23)
[2023-08-11 18:31] LABS: % Basophils 0.3 % (0-2); % Lymphocytes 4.5 % (20.5-51.1); % Monocytes 2.1 % (1.7-9.3); % Neutrophils 88.1 % (42.2-75.2); Absolute Immature Granulocytes 0.3 10^3/uL (0-0.05); Absolute Lymphocytes 0.3 10^3/uL (1.2-3.4); Absolute Monocytes 0.1 10^3/uL (0.1-0.6); Absolute Neutrophils 5.5 10^3/uL (1.4-6.5); Hemoglobin 13.6 g/dL (13.0-18.0); Mean Corp Hgb Conc. 36.8 g/dL (33.0-37.0); Mean Corpuscular Hgb 30.3 pg (27.0-31.0); Mean Corpuscular Volume 82.4 fL (80.0-94.0); Nucleated Red Blood Cells % 0.5 % (-); Red Blood Cell Count 4.49 10^6/uL (4.70-6.10); Red Cell Dist. Width 14.5 % (11.5-14.5); White Blood Cell Count 6.3 10^3/uL (4.8-10.8)
[2023-08-11 18:38] VITALS: BMI 30.7
[2023-08-11 18:43] LABS: Lactic Acid 3.8 mmol/L (0.7-2.0)
[2023-08-11 18:44] LABS: Monotest Negative (Negative)
[2023-08-11 18:46] LABS: ALT (SGPT) 530 U/L (0-50); AST (SGOT) 103 U/L (17-59); Albumin 3.2 g/dl (3.5-5.0); Alkaline Phosphatase 223 U/L (38-126); Blood Urea Nitrogen 17 mg/dl (9-20); Calcium 8.4 mg/dl (8.4-10.2); Carbon Dioxide 22 mmol/L (22-30); Chloride 102 mmol/L (98-107); Estimated Creatinine Clearance > 125 ml/min; Glucose 264 mg/dl (70-99); Lipase 133 U/L (23-300); Potassium 3.7 mmol/L (3.5-5.1); Sodium 131 mmol/L (135-145); Total Bilirubin 1.5 mg/dl (0.2-1.3); Total Protein 5.3 g/dl (6.3-8.2); eGFR > 60.00
[2023-08-11 18:54] LABS: Mean Platelet Volume 8.7 fL (7.4-10.4); Platelet Count 63 10^3/uL (130-400)
[2023-08-11 18:57] LABS: Troponin I 0.022 ng/ml
[2023-08-11 19:00] VITALS: BP 139/95
[2023-08-11 19:02] LABS: Urine Albumin Negative (Neg - Trace); Urine Bilirubin Negative (Negative); Urine Character Clear (Clear); Urine Color Yellow; Urine Glucose 3+ (Negative); Urine Ketone 1+ (Negative); Urine Leukocyte Negative (Negative); Urine Nitrite Negative (Negative); Urine Occult Blood Negative (Negative); Urine Urobilinogen Negative (Neg - 1+)
[2023-08-11 19:14] LABS: TSH 0.24 uIU/ml (0.47-4.68)
[2023-08-11 19:15] LABS: COVID-19 Antigen Negative (Negative)
[2023-08-11] MEDS: NSS 1000 IV (19:45)
[2023-08-11 20:04] LABS: Ammonia < 9 umol/L (9-30)
[2023-08-11 21:49] VITALS: BP 118/99
[2023-08-11 22:00] VITALS: BP 130/77
[2023-08-11] MEDS: KEPPRA 1000 MG PO (22:24)
[2023-08-11] MEDS: ELIQUIS 5 MG PO (22:29)
[2023-08-12] VITALS (17 sets, daily range): BP systolic 111–161; BP diastolic 68–95; BMI 26.7
--- NOTE | 2023-08-12 01:23 | HPS.HSE ---
Family Physician
-
Family Physician: Socorro Murcia
Chief Complaint
-
Weakness
History of Present Illness
Patient is a 68y M with PMH significant for glioblastoma s/p resection / [employer] who presents to ED for evaluation of weakness and fatigue. History obtained primarily from ED staff. Patient is sleeping and will answer only Y/N questions. He
denies any pain. He cannot tell me why he came to the ED this evening. stated that patient was progressively more weak/ fatigued over the past few days. Decreased PO intake and activity in general. No witnessed seizure activity.
No recent changes in medications noted.
Patient was last hospitalized in July and diagnosed with seizures at that time and started on Keppra.
Medical History
Past Medical History
Past Medical History: Reports Other
Additional Past Medical History:
Glioblastoma - Left Frontal
Dyslipidemia
Seizure Disorder
Hypertension
RLE DVT
Past Surgical History: Reports Other
Additional Past Surgical History:
Gamma Knife / Resection of L Frontal Tumor
Social History
Tobacco: Non-smoker
Alcohol: None
Personal:
Living: With Family
Family History
Family History: Not pertinent
Allergies / Home Medications
Allergies reflects when Allergies were last updated in [facility].
Home Medications with original date entered in [facility]
Allergy/Medication List:
Allergies
Allergy/AdvReac Type Severity Reaction Status Date / Time
No Known Allergies Allergy Verified 07/18/23 16:38
Home Medications
metoprolol succinate 25 mg tablet,extended release 24 hr 25 mg PO DAILY ##90 09/03/15
atorvastatin 80 mg tablet 80 mg PO DAILY 07/11/23
dexamethasone 6 mg tablet 6 mg PO 2XD 07/11/23
famotidine 20 mg tablet 20 mg PO BID 07/11/23
levetiracetam 1,000 mg tablet (Keppra) 1,000 mg PO BID #60 tabs 07/11/23
ondansetron HCl 8 mg tablet 8 mg PO Q8H PRN nausea 07/11/23
apixaban 5 mg tablet (Eliquis) 5 mg PO BID #60 tabs 07/18/23
zolpidem 5 mg tablet (Ambien) 5 mg PO HS PRN insomnia 08/11/23
Review of Systems
-
History Source: Patient
A 12 point ROS was completed and negative except as noted: Yes
Constitutional: Denies Fever or Chills
Respiratory: Denies Cough or Trouble Breathing
Cardiac: Denies Chest Pain or Palpitations
Abdomen/GI: Denies Nausea or Vomiting
Neurological: Denies Dizzy or Headache
Physical Exam
Vital Signs
Vital Signs
Temp Pulse Resp BP Pulse Ox
98.0 F 67 13 130/77 97
08/11/23 17:18 08/11/23 22:45 08/11/23 22:45 08/11/23 22:00 08/11/23 22:45
Physical Exam
General: Other (68y M sleeping comfortably. Not in acute distress.)
HEENT: Moist mucous membranes
Respiratory: Clear; No Wheezes, Rales or Rhonchi
Cardiac: S1/S2 and Regular Rhythm; No Murmur
GI: Soft, Non Tender, Non Distended and Normal Bowel Sounds
Musculoskeletal: No Clubbing, No Cyanosis and Other (Pos RLE edema.)
Neuro: Other (Sleeping. Anwers only Y/N questions.)
Psych: No Agitated or Anxious
Laboratory Results
-
08/11/23 18:16
08/11/23 18:16
Laboratory Results
Lactic Acid 3.8 mmol/L (0.7-2.0) H 08/11/23 18:16
Total Bilirubin 1.5 mg/dl (0.2-1.3) H 08/11/23 18:16
AST 103 U/L (17-59) H 08/11/23 18:16
ALT 530 U/L (0-50) H* 08/11/23 18:16
Alkaline Phosphatase 223 U/L (38-126) H 08/11/23 18:16
Troponin I 0.022 ng/ml 08/11/23 18:16
Lipase 133 U/L (23-300) 08/11/23 18:16
Impression/Plan
-
A/P: Patient is a 68y M with PMH significant for glioblastoma and seizure disorder who presents to ED for evaluation of progressive weakness and fatigue.
Altered Mental Status / Acute TME
- Admit for further evaluation and treatment.
- Unclear etiology at this time.
- ? post-ictal phenomenon with elevated lactate / ? unwitnessed seizure activity.
- ? med effect from recently added Keppra.
- ? tumor effect from known glioblastoma / vasogenic edema.
- Follow for any new / worsening symptoms.
- Follow for any changes in neuro exam.
- Neurology evaluation for additional recommendations.
Glioblastoma
Seizure Disorder secondary to the above
- CT scan shows no significant changes from 07/2023 imaging.
- Edema and subtle shift remains.
- Continue current steroid therapy.
- Continue Keppra for now - this may be contributing to fatigue and level is pending.
- Seizure precautions.
- IV Ativan as needed for any breakthrough seizures.
- Neuro evaluation as noted above.
Abnormal LFTs
- Unclear etiology. LFTs have been uptrending since prior to July admission.
- ? secondary to new med sometime between 03/2023 and 07/2023.
- Can be due to Keppra; however, LFTs already trending up prior to initiation of this med.
- US is unremarkable on preliminary read.
- Follow for changes in labs.
- Hold statin acutely.
Thrombocytopenia
- Similar to above. Seems likely this is related to some med / treatment initiated between 03/26 and 07/28.
- Review in more detail with family in AM to try and identify culprit. ? secondary to chemoradiation started in April.
- No evidence of active bleeding.
- Follow for changes.
Benign Hypertension
- Stable. Continue metoprolol.
RLE DVT
DVT Prophylaxis
- Still with RLE edema noted on exam.
- Continue Eliquis.
Code Status: Full
[2023-08-12 07:20] LABS: Free T4 0.58 ng/dl (0.78-2.19)
--- NOTE | 2023-08-12 09:37 | CON.NEURO ---
Neuro Assessment/Plan
Assessment
IMPRESSIONS/RECOMMENDATIONS:
Abrupt change in mental status with lethargy in a patient with a known glioblastoma, left frontal parietal in location with prior resection, chemotherapy, and radiation therapy
DDX includes toxic metabolic encephalopathy, expansion of glioblastoma, intermittent nonconvulsive seizures
Plan
Check MRI of brain with and without contrast
Check EEG
Check for additional metabolic abnormalities producing symptomatology
Would return patient's dexamethasone dosing from 6 mg twice a day to dosing of 8 mg twice a day
Continue levetiracetam 1000 mg every 12 hours
Continue apixaban
Continue atorvastatin
Goal of normoglycemia
Will continue to follow patient. Thank you.
Consultation
Order
Date of Consultation: 08/12/23
Requesting Provider: Hospitalist
Reason for Consult: Change in mental status
Subjective/Objective
Subjective Data
Date of Service: August 12, 2023
From our recent inpatient hospital consultation:
DATE/TIME OF CONSULTATION:� 07/11/23
Reason for Consultation:� Seizure
History of Present Illness:�
This is a 68-year-old right-handed male who has presented to the hospital with report of seizure at home. Patient is a poor historian and some of this information is obtained from medical records. Patient initially presented to ER on 03/18/23
with report of a two week history of right-sided weakness affecting his ability to kayak and golf, then ultimately he couldn't use a nail clipper with his right hand, prompting him to go to the ER for evaluation. CT head demonstrated a malignant
left frontal lobe brain tumor and he was transferred to [place]. He deferred enrollment in the IMVAX trial and elected to undergo crani for near-total tumor resection by Dr. Duff on 03/21/23. Pathologist was consistent with glioblastoma (GBM). He
started chemoradiation on 04/23/23. At an unclear time, patient was found to have a RLE DVT and was started on Eliquis. Additionally, last week his Decadron dosage was increased due to increased vasogenic edema.
This morning around 0130, patient's witnessed the patient having seizure-like activity lasting 30 seconds. Per the patient, he had right body shaking, bit his tongue, and was more disoriented than baseline after the episode. He denies any
bowel/bladder incontinence. This is the first time he has had any events like this and he has had no further events since. Currently, he feels back at his baseline. He denies any headache, dizziness, vision changes, speech/swallow difficulty,
numbness, new weakness, chest pain, palpitations, and shortness of breath. He endorses chronic forgetfulness/confusion and right-sided weakness.
~~~~
Following that consultation, patient was advised to increase levetiracetam which was newly from 500 mg twice a day to 1000 mg twice a day as well as continuing his usual dosing of dexamethasone. Patient then returned to this hospital's emergency
department on July 18, 2023 with greater difficulty with the right lower extremity presumed to be due to worsening of his venous thrombosis. The patient's cognition at that time was described as inadequate to provide his own medical history.
The patient returned to this hospital's emergency department yesterday evening worsening lethargy in the last 3 days.
Patient was instructed to increase dosing for 1 week to 8 mg BID, then decrease dosing of Dexamethasone from 8 mg BID to 6 mg BID starting yesterday. Last dose of chemotherapy was in 07/2023 after 6 months of chemo and brain XRT.
Objective Data
Vital Signs
Temp Pulse Resp BP Pulse Ox
36.7 C 67 14 146/90 98
08/12/23 09:25 08/12/23 09:25 08/12/23 09:25 08/12/23 09:25 08/12/23 09:25
Lab Results
08/11/23 18:16
08/11/23 18:16
Sodium 131 mmol/L (135-145) L 08/11/23 18:16
Potassium 3.7 mmol/L (3.5-5.1) 08/11/23 18:16
BUN 17 mg/dl (9-20) 08/11/23 18:16
Glucose 264 mg/dl (70-99) H 08/11/23 18:16
Calcium 8.4 mg/dl (8.4-10.2) 08/11/23 18:16
Patient Allergies
No Known Allergies Allergy (Verified 07/18/23 16:38)
Review of Systems
-
Unable to obtain full review of systems at this time due to: Lethargy and Aphasia
History Source: Patient
All other systems: Reviewed and negative
Physical Exam
-
General: No Apparent Distress and Appears Stated Age
Eyes: OU Absent Papilledema, Round OU, [place] Conjunctivae and No Ptosis
HEENT: Anicteric and Moist Mucous Membranes
Neck: Full Range of Motion
Respiratory: No Dyspnea
Cardiac: No JVD
GI: Non-distended
Skin: Unremarkable
Extremities: No Clubbing, No Cyanosis and No Edema
Psych: Unable to Assess
Extended Neurological Exam
Mood & Affect: Mood Unremarkable and Affect Unremarkable
Attention Span & Concentration: Awake, Interactive, Closes Eyes after Stimulation (After approximately 5 seconds) and Unable to Perform 2 Step Request; Negative Alert
Memory: Able to Recall (Known first name), Reduced (For current location) and Unable to Recall Personal History
Tremor: Hand Tremor Absent and Head Tremor Absent
Involuntary Movement: None
Speech: Quality Unremarkable and Severely Reduced Output
Cranial Nerve II: Left Eye: Pupillary Reactivity Unremarkable, Pupillary Size Unremarkable and Visual Steve Intact
Cranial Nerve II: Right Eye: Pupillary Reactivity Unremarkable, Pupillary Size Unremarkable and Visual Steve Intact
Cranial Nerves III, IV, : Extraocular Movement: Grossly Intact
Cranial Nerve V: Facial Sensation: Unable to Assess
Cranial Nerve VII: Facial Symmetry: Normal Facial Symmetry
Cranial Nerve VIII: Hearing: Unremarkable Hearing to Normal Conversational Volume
Cranial Nerves IX, X: Palate Movement: Palate Elevation Symmetric
Cranial Nerve XI: Shoulder Shrug: Unremarkable
Cranial Nerve XII: Tongue Protusion: Midline
Muscle Strength, Overall: Reduced (1 out of 5 right upper extremity 1 out of 5 right lower extremity 2 out of 5 left lower extremity)
Muscle Bulk & Tone: Bulk Unremarkable and Tone Unremarkable
Pronator Drift: Unable to Assess
Deep Tendon Reflexes: Absent Throughout
Cold Sensation: Unable to Assess
Vibration Sensation: Unable to Assess
Touch Sensation: Unremarkable
Coordination: Reaches for Objects without Difficulty (With left upper extremity only) and Unable to Assess (Unable to assess [id number] movements or right upper extremity)
Babinski Sign: Present Bilaterally
Gait & Station: Unable to Assess
Data Reviewed
-
CT Head: Report Reviewed
Labs: Report Reviewed
Reviewed with: Physician, Patient and Family
Old Records: Summarized
Medications
-
Active Medications
Generic Name Dose Route Start Last Admin
Trade Name Freq PRN Reason Stop Dose Admin
Apixaban 5 mg 08/12/23 08:00
Apixaban (Eliquis) 5 Mg Tablet PO 09/09/23 07:59
BID MIRTA
Dexamethasone 4 mg 08/12/23 08:00
Dexamethasone 4 Mg Tablet PO 09/09/23 07:59
BID MIRTA
Dexamethasone 2 mg 08/12/23 08:00
Dexamethasone 2 Mg Tablet PO 09/09/23 07:59
BID MIRTA
Levetiracetam 1,000 mg 08/12/23 08:00
Levetiracetam 500 Mg Regular Release Tablet PO 09/09/23 07:59
BID MIRTA
Lorazepam 1 mg 08/12/23 06:20
Lorazepam 2 Mg/Ml Vial IV 09/09/23 06:19
Q4HPRN PRN
Seizure activity
Metoprolol Succinate 25 mg 08/12/23 08:00
Metoprolol 25 Mg Extended Release Tablet PO 09/09/23 07:59
DAILY MIRTA
Sodium Chloride 0 flush 08/12/23 07:00
Sodium Chloride 0.9% (Flush) Syringe IV 09/09/23 06:59
PER PROTOCOL MIRTA
Sodium Chloride 0.5 ml 08/12/23 06:45
Nss (Pf) 10 Ml Vial For Ativan 1 Mg Dose IV 09/09/23 06:44
Q4HPRN PRN
IV LORAZEPAM DILUTION
Home Medications
Medication Instructions Recorded
metoprolol succinate 25 mg 25 mg PO DAILY ##90 09/03/15
tablet,extended release 24 hr
atorvastatin 80 mg tablet 80 mg PO DAILY 07/11/23
dexamethasone 6 mg tablet 6 mg PO 2XD 07/11/23
famotidine 20 mg tablet 20 mg PO BID 07/11/23
levetiracetam 1,000 mg tablet 1,000 mg PO BID #60 tabs 07/11/23
(Keppra)
ondansetron HCl 8 mg tablet 8 mg PO Q8H PRN nausea 07/11/23
apixaban 5 mg tablet (Eliquis) 5 mg PO BID #60 tabs 07/18/23
zolpidem 5 mg tablet (Ambien) 5 mg PO HS PRN insomnia 08/11/23
Past History
Past History
ED Past Medical History: CAD, Cancer (Glioblastoma), HTN, Hypercholesterolemia, AL, Seizures and Other (T)
ED Past Surgical History: Cardiac (Cardiac stents)
Social History
Tobacco: Non-smoker
Alcohol: Former (Was previously a heavy drinker but been cutting back over the last 6 months)
Drug: None
Personal:
Living: with family
Employment: Employed
Family History
Family History: Other (Mother with diabetes and hyperlipidemia. Father with hypertension)
[2023-08-12] MEDS: ELIQUIS PO (11:12)
[2023-08-12] MEDS: THIAMINE INJECTION 100 MG IV (14:50)
--- NOTE | 2023-08-12 14:52 | W.PN.UPDATE ---
Update Note
Progress Note Update
Patient seen by Dr. Plascencia this morning -admitted for increasing sleepiness and decreased interaction with family since last sunday.
Discussed with and family at bedside today.
He was discovered to have new onset of seizures last month. Has not had follow-up with oncology postdischarge. He was supposed to see oncologist last but could not get his MRI of the brain so had to be postponed to next Sunday.
According to family when he was in similar situation it got better with increased dose of steroids. He is currently on 8 mg twice a day. Patient family did not see any seizure-like activity.
His appetite is decreasing and that he was noted to be coughing on oral intake yesterday.
Right-sided weakness is much the same.
Patient is alert and he thought he was in [facility]. Not much conversational after that. Denies any headache.
Right upper extremity strength 4 / 5 ;right lower extremity difficult exam as he does not participate but increased tone noted
Labs noted with increased abnormal LFTs which is new.
CT head - No acute intracranial hemorrhage. Overall stable examination, with extensive vasogenic edema in the left frontal lobe, adjacent to and surrounding a central low-attenuation mass/neoplasm. Stable compression of the left lateral ventricle,
which is depressed inferiorly. Stable, very subtle rightward shift, similar to prior examination, without subfalcine herniation.
Await neuro input.
Await speech input -till then will switch Keppra and decadron to IV
Will dw primary oncologist Dr Lainey Mendez as family wants him tranferred to [place].
[2023-08-12] MEDS: DECADRON 8 MG IV (17:16)
[2023-08-12] MEDS: TOPROL XL PO (19:30)
[2023-08-12] MEDS: KEPPRA 1000 MG IV (20:33)
[2023-08-12] MEDS: ELIQUIS 5 MG PO (20:33)
[2023-08-13 03:15] VITALS: BP 127/79
[2023-08-13] MEDS: DECADRON 8 MG IV ×2 (03:26→17:51)
[2023-08-13 06:00] VITALS: BMI 26.9
--- NOTE | 2023-08-13 08:16 | W.PN.NEURO.1 ---
Today's Communication / Plan
-
-Continue the increased dose of steroid 8 mg IV dexamethasone twice daily
-Would remain on the same dose of levetiracetam 1000 mg twice daily
-MRI brain reviewed
-Check EEG
-Minimize sedating medications
-Speech therapy evaluation
-Workup of the elevated liver function tests, currently holding statin
-Transferring to [place] as had most of his neurosurgical and oncologic care there
Will follow as needed call with questions and concerns
Neuro Assessment/Plan
Assessment
IMPRESSIONS/RECOMMENDATIONS:
Abrupt change in mental status with lethargy in a patient with a known glioblastoma, left frontal parietal in location with prior resection, chemotherapy, and radiation therapy
DDX includes toxic metabolic encephalopathy (elevated liver enzymes), expansion of glioblastoma, intermittent nonconvulsive seizures
Patient did have a decrease in steroid dosing from 8 mg and 6 mg a day to 6 mg twice daily
Brain MRI reviewed and does show an increase in vasogenic edema which is present on admission and is due to the presence of the glioblastoma tumor
I do feel that the increase in vasogenic edema is most likely contributing to his symptoms
Suspicion for nonconvulsive seizure activity causing his encephalopathy is low
Elevated liver function test may be producing some degree of metabolic encephalopathy that can contribute to the patient's aphasia on top of the sting left-sided brain neoplasm and associated edema
Subjective/Objective
Subjective Data
Date of Service: August 13, 2023
No acute events, patient mildly irritable, still with aphasia, no seizures seen
Objective Data
Vital Signs
Temp Pulse Resp BP Pulse Ox
97.6 F 81 20 127/79 96
08/13/23 03:15 08/13/23 03:15 08/13/23 03:15 08/13/23 03:15 08/13/23 03:15
Sodium 131 mmol/L (135-145) L 08/11/23 18:16
Potassium 3.7 mmol/L (3.5-5.1) 08/11/23 18:16
BUN 17 mg/dl (9-20) 08/11/23 18:16
Glucose 264 mg/dl (70-99) H 08/11/23 18:16
Calcium 8.4 mg/dl (8.4-10.2) 08/11/23 18:16
Patient Allergies
No Known Allergies Allergy (Verified 07/18/23 16:38)
Review of Systems
-
Unable to obtain full review of systems at this time due to: Aphasia
Physical Exam
-
General: No Apparent Distress and Comfortable
Eyes: No Ptosis
HEENT: Normocephalic
Neck: No Bruits Bilaterally
Respiratory: Clear to Auscultation
Cardiac: Regular Rhythm
GI: Normal Bowel Sounds
Skin: Unremarkable
Extremities: No Clubbing
Psych: Confused; Negative Agitated
Extended Neurological Exam
Mood & Affect: Mood Unremarkable and Affect Unremarkable
Attention Span & Concentration: Awake, Alert, Interactive and Moderate Difficulty with 2 Step Request; Negative Lethargic
Memory: Reduced
Tremor: Hand Tremor Absent
Involuntary Movement: None
Speech: Expressive Aphasia, Receptive Aphasia and Other (Names simple objects like pen and watch well, says his name and , says he is in [facility], can repeat simple phrases, mostly non-fluent aphasia); Negative Dysarthric
Cranial Nerve II: Left Eye: Pupillary Reactivity Unremarkable, Pupillary Size Unremarkable and Visual Steve Intact
Cranial Nerve II: Right Eye: Pupillary Reactivity Unremarkable, Pupillary Size Unremarkable and Visual Steve Intact
Cranial Nerves III, IV, : Extraocular Movement: Extraocular Movement Full in all Directions
Cranial Nerve VII: Facial Symmetry: Normal Facial Symmetry
Muscle Strength, Overall: Full Throughout
Muscle Bulk & Tone: Bulk Unremarkable
Pronator Drift: No Drift in Upper Extremities
Vibration Sensation: Unremarkable
Touch Sensation: Unremarkable
Data Reviewed
-
CT Head: Report Reviewed and Image Reviewed
MRI Head: Report Reviewed and Image Reviewed
EEG: Report Reviewed
--- NOTE | 2023-08-13 10:01 | VNURNOTE ---
Patient is current with [facility] since 06/30 w/SN/PT/OT/ST/[employer], will monitor progress and plan at discharge.
[2023-08-13 11:20] VITALS: BP 156/98
[2023-08-13] MEDS: THIAMINE INJECTION 100 MG IV (11:47)
--- NOTE | 2023-08-13 11:47 | EEG.RPT ---
Electroencephalogram Report
Recording
Date of EE08/13/23
Type of EEG: Routine
Length of EEG recordin minutes
Done with Video Recording: Yes
Patient Status: Inpatient
Recording Conditions: Awake and Drowsy
Hyperventilation Performed: No
Photic Stimulation Performed: Yes
Report
LESS THAN 1 HOUR EEG REPORT
EEG INTERPRETATION:
Unremarkable EEG for age
CLINICAL CORRELATION:
A normal EEG does not rule out a diagnosis of epilepsy. If clinical suspicion for seizure persists, a prolonged recording may be warranted.
Clinical correlation is advised.
METHODS:
A 21 channel digitized electroencephalogram (EEG) was performed in the Clinical Neurophysiology Laboratory. The 10/20 international system of electrode placement was used with ECG and lateral/vertical eye movements recorded. Persyst quantitative EEG
analysis was performed.
ELECTROENCEPHALOGRAPHER IMPRESSION(S):
Quality of study
Good
Background
Unremarkable, well maintained, medium amplitude alpha-frequency and unremarkable anterior-posterior voltage gradient
With eye opening the background activity changed to a low voltage mixture of frequencies.
Sleep
Drowsiness present
Photic Stimulation
Did not activate the record
ECG
Normal sinus rhythm
[2023-08-13] MEDS: TOPROL XL 25 MG PO (11:48)
[2023-08-13] MEDS: ELIQUIS 5 MG PO ×2 (11:48→19:44)
[2023-08-13] MEDS: FLUSH (NSS) 1 FLUSH IV ×2 (11:49→12:22)
--- NOTE | 2023-08-13 11:58 | W.PN.HOSP.TC ---
Addendum entered and electronically signed by Renaldo Street MD 08/13/23 14:47:
Spoke with [facility] transfer center again. Spoke with Dr. Sandip Sheffield who is a neurologist at [facility]. He also communicated with oncology service at [facility] and it appears the patient is currently more appropriate for neurology service.
Spoke with spouse again and she still wants patient to be transferred to [facility] for further management. Accepting attending now is Dr. Chon Kunz. Spouse and transfer center aware.
Original Note:
Today's Communication/Plan
-
Monitor vital signs see plan
Continue with Decadron
Keppra
labs pending
Awaiting transfer to [facility]; accepted by Dr Lundberg
Updated spouse at bedside
Assessment / Plan
Assessment / Plan
General: Not in acute distress
HEENT: Moist mucous membranes
Respiratory: Clear; No Wheezes, Rales or Rhonchi
Cardiac: S1/S2 and Regular Rhythm; No Murmur
GI: Soft, Non Tender, Non Distended and Normal Bowel Sounds
Musculoskeletal: No Clubbing, No Cyanosis and Other (Pos RLE edema.)
Neuro: AAOX1-2
Psych: No Agitated or Anxious
Altered Mental Status / Acute TME
�- suspect 2/2 glioblastoma and vasogenic edema; could also be component of seizure
EEG neg
Neurology following
Continue with antiepileptic
Decadron increase to 8 twice daily
cw keppra; Keppra level pending
Patient follows with Dr. Mercedes Vega at [facility]. Patient is now accepted to go to [facility] for further management. Accepted by Dr. Terri Lundberg.
spouse signed transfer form; in chart
MRI consistent with glioblastoma and vasogenic edema
Glioblastoma
Seizure Disorder secondary to the above
�- CT scan shows no significant changes from 07/2023 imaging.
�- Edema and subtle shift remains.
�- Continue current steroid therapy.
�- Continue Keppra for now - this may be contributing to fatigue and level is pending.
�- Seizure precautions.
�- IV Ativan as needed for any breakthrough seizures.
�- Neuro evaluation as noted above.
Abnormal LFTs
�- Unclear etiology.� LFTs have been uptrending since prior to July admission.
�- ? secondary to new med sometime between 03/2023 and 07/2023.
�- Can be due to Keppra; however, LFTs already trending up prior to initiation of this med.
�- US is unremarkable on preliminary read.
�- labs pending today
�- Hold statin acutely.
Thrombocytopenia
�- Similar to above.� Seems likely this is related to some med / treatment initiated between 03/26 and 07/28.
�- Review in more detail with family in AM to try and identify culprit.� ? secondary to chemoradiation started in April.
�- No evidence of active bleeding.
�- Follow for changes.
Benign Hypertension
�- Stable.� Continue metoprolol.
RLE DVT
DVT Prophylaxis
�- Still with RLE edema noted on exam.
�- Continue Eliquis.
Code Status:� Full
I spent a total of 52 minutes with the patient or on the floor. More than 50% of this time involved counseling and coordination of care.
Anticipated Discharge: Today
Subjective/Interval History
-
Date of Service: August 13, 2023
Denies pain
Objective Data
-
Labs:
Laboratory Results
08/13/23
06:00
WBC Pending
Hgb Pending
Hct Pending
Plt Count Pending
PT Pending
INR Pending
APTT Pending
Sodium Pending
Potassium Pending
Chloride Pending
Carbon Dioxide Pending
BUN Pending
Creatinine Pending
Glucose Pending
Calcium Pending
Total Bilirubin Pending
AST Pending
ALT Pending
Alkaline Phosphatase Pending
Vital Signs:
Vital Signs
Temp Pulse Resp BP Pulse Ox
97.6 F 81 20 127/79 96
08/13/23 03:15 08/13/23 03:15 08/13/23 03:15 08/13/23 03:15 08/13/23 03:15
I&O
08/12/23 08/13/23 08/14/23
06:59 06:59 06:59
Intake Total 50 / 50
Output Total 0 / 0
Balance 50 / 50
[2023-08-13] MEDS: KEPPRA 1000 MG IV ×2 (12:22→19:45)
[2023-08-13 12:34] LABS: INR 1.02; PT 13.2 Sec (11.4-14.6)
[2023-08-13 12:39] LABS: Lactic Acid 1.5 mmol/L (0.7-2.0)
[2023-08-13 12:40] LABS: ALT (SGPT) 387 U/L (0-50); AST (SGOT) 43 U/L (17-59); Albumin 3.5 g/dl (3.5-5.0); Alkaline Phosphatase 211 U/L (38-126); Blood Urea Nitrogen 9 mg/dl (9-20); Calcium 8.6 mg/dl (8.4-10.2); Carbon Dioxide 21 mmol/L (22-30); Chloride 104 mmol/L (98-107); Direct Bilirubin 0.2 mg/dl (0.0-0.4); Estimated Creatinine Clearance > 125 ml/min; Glucose 141 mg/dl (70-99); Hematocrit 40.9 % (39.0-52.0); Hemoglobin 15.3 g/dL (13.0-18.0); Mean Corp Hgb Conc. 37.4 g/dL (33.0-37.0); Mean Corpuscular Hgb 30.2 pg (27.0-31.0); Mean Corpuscular Volume 80.8 fL (80.0-94.0); Platelet Count 70 10^3/uL (130-400); Potassium 3.6 mmol/L (3.5-5.1); Red Blood Cell Count 5.06 10^6/uL (4.70-6.10); Red Cell Dist. Width 14.6 % (11.5-14.5); Sodium 131 mmol/L (135-145); Total Bilirubin 1.9 mg/dl (0.2-1.3); Total Protein 5.8 g/dl (6.3-8.2); White Blood Cell Count 7.2 10^3/uL (4.8-10.8); eGFR > 60.00
[2023-08-13 13:04] LABS: APTT 22.6 Sec (23.4-35.0)
[2023-08-13 15:30] VITALS: BP 129/92
--- NOTE | 2023-08-13 16:01 | CM ---
CM reviewed chart, patient for transfer to [place] when bed available. CM will continue to follow for discharge planning needs.
Plan; Transfer to [place] when bed available.
--- NOTE | 2023-08-13 17:35 | PTCARENOTE ---
Patient verbalizing to nursing staff that he wants to . Suicide screening performed and positive. Dr. Street made aware. Will begin one to one suicide precautions.
[2023-08-13] MEDS: FLUSH (NSS) 2 FLUSH IV (17:54)
[2023-08-13] MEDS: ATIVAN 0.5 MG PO (18:51)
[2023-08-13 19:22] VITALS: BP 127/91
[2023-08-13 20:04] LABS: Keppra (Levetiracetam) 13 ug/mL (10-40)
[2023-08-13 23:07] VITALS: BP 136/92
[2023-08-14 02:32] VITALS: BMI 25.2
[2023-08-14] MEDS: DECADRON 8 MG IV ×2 (03:10→16:46)
[2023-08-14 03:15] VITALS: BP 117/76
[2023-08-14 06:33] VITALS: BMI 25.2
[2023-08-14 07:17] VITALS: BP 115/79
[2023-08-14 08:39] LABS: % Basophils 0.2 % (0-2); % Lymphocytes 3.2 % (20.5-51.1); % Monocytes 1.6 % (1.7-9.3); Absolute Immature Granulocytes 0.3 10^3/uL (0-0.05); Absolute Lymphocytes 0.3 10^3/uL (1.2-3.4); Absolute Monocytes 0.1 10^3/uL (0.1-0.6); Absolute Neutrophils 7.6 10^3/uL (1.4-6.5); Hematocrit 41.9 % (39.0-52.0); Mean Corp Hgb Conc. 35.8 g/dL (33.0-37.0); Mean Corpuscular Hgb 29.7 pg (27.0-31.0); Mean Platelet Volume 9.3 fL (7.4-10.4); Nucleated Red Blood Cells % 0.6 % (-); Platelet Count 107 10^3/uL (130-400); Red Blood Cell Count 5.05 10^6/uL (4.70-6.10); Red Cell Dist. Width 14.7 % (11.5-14.5); White Blood Cell Count 8.3 10^3/uL (4.8-10.8)
--- NOTE | 2023-08-14 08:44 | PTOTSP ---
Speech Therapy Swallowing Assessment
Oral/pharyngeal swallow deemed within functional limits without overt signs of aspiration. Monitoring for dysphagia/aspiration needed with disease progression.
Recommend
1. Regular Solids and Thin Liquids
2. Meds with liquid as tolerated (whole in applesauce as needed)
3. Assist with feeding as needed given initiation difficulty.
4. Fully upright with meals.
5. Resume ST at home for cognitive communication but also to monitor/assess changes in swallowing/risk for aspiration with disease progression.
[2023-08-14] MEDS: ELIQUIS 5 MG PO (09:11)
[2023-08-14] MEDS: THIAMINE INJECTION 100 MG IV (09:12)
[2023-08-14] MEDS: TOPROL XL 25 MG PO (09:12)
[2023-08-14] MEDS: KEPPRA 1000 MG IV (09:13)
[2023-08-14] MEDS: FLUSH (NSS) 3 FLUSH IV (09:15)
[2023-08-14 09:24] LABS: ALT (SGPT) 305 U/L (0-50); AST (SGOT) 34 U/L (17-59); Albumin 3.5 g/dl (3.5-5.0); Alkaline Phosphatase 204 U/L (38-126); Blood Urea Nitrogen 12 mg/dl (9-20); Calcium 8.9 mg/dl (8.4-10.2); Carbon Dioxide 24 mmol/L (22-30); Chloride 100 mmol/L (98-107); Estimated Creatinine Clearance > 125 ml/min; Glucose 185 mg/dl (70-99); Potassium 3.6 mmol/L (3.5-5.1); Sodium 133 mmol/L (135-145); Total Bilirubin 1.5 mg/dl (0.2-1.3); Total Protein 5.7 g/dl (6.3-8.2); eGFR > 60.00
[2023-08-14] MEDS: FLUSH (NSS) 2 FLUSH IV (10:59)
--- NOTE | 2023-08-14 11:02 | CS.PSYCHR ---
Consult Summary - Psychiatry
-
Pt is 68 yo male with glioblastoma diagnosed last March, admitted with confusion/ worsening of mental status, awaiting transfer to [facility]. Psychiatry asked to evaluate due to suicidal ideation yesterday afternoon. Pt seen with at bedside.
Pt acknowledges having brief SI yesterday, but he denies any SI today. reports pt was anxious, felt much better after receiving medication- was given Ativan 0.5 mg. Pt states he feels better today, is resting calmly in bed, in no apparent
distress. reports he has had moments of distress over the past few months since his diagnosis of glioblastoma, but often unable to recall his statements. expressed some concern after reading about the rare side effects of Keppra,
including possible mood disturbance. Pt denies any psychotic symptoms.
PMH: glioblastoma- left frontal parietal in location- with prior resection, chemotherapy, and radiation therapy, Dyslipidemia, Seizure Disorder, Hypertension, RLE DVT
Psych Hx: denied
SH: lives with ; non-contributory
MSE: alert, mostly oriented, calm, cooperative, making good eye contact. Sensorium appears intact. Affect appropriate, mood appears stable. Speech coherent, limited due to noted aphasia, no signs of psychosis. Insight fair.
Imp: TME, unclear etiology
Unspecified anxiety/depression, briefly endorsed passive SI on screening, denies any ongoing suicidal ideation/plan/intent. Risk for self-harm appears very low
Rec: no psychiatric intervention needed
will sign off, please reconsult for any further concerns
--- NOTE | 2023-08-14 11:45 | W.PN.HOSP.TC ---
Addendum entered and electronically signed by Renaldo Street MD 08/15/23 08:10:
Time of discharge 37 minutes
Original Note:
Today's Communication/Plan
-
monitor vitals
see plan
pending transfer to early
cw decadron
cw keppra
Discussed with spouse at bedside
Assessment / Plan
Assessment / Plan
General: Not in acute distress
HEENT: Moist mucous membranes
Respiratory: Clear; No Wheezes, Rales or Rhonchi
Cardiac: S1/S2 and Regular Rhythm; No Murmur
GI: Soft, Non Tender, Non Distended and Normal Bowel Sounds
Musculoskeletal: No Clubbing, No Cyanosis and Other (Pos RLE edema.)
Neuro: AAOX1-2
Psych: No Agitated or Anxious
Altered Mental Status / Acute TME
�- suspect 2/2 glioblastoma and vasogenic edema; could also be component of seizure however after EEG it appears unlikely
EEG neg
Neurology following
Continue with antiepileptic
Decadron increase to 8 twice daily
cw keppra; Keppra level pending
Patient follows with Dr. Mercedes Vega at [facility]. Patient is now accepted to go to [facility] for further management. Accepted by Dr. Dr. Chon Kunz (Neurologist)
spouse signed transfer form; in chart
MRI consistent with glioblastoma and vasogenic edema
Glioblastoma
Seizure Disorder secondary to the above
�- CT scan shows no significant changes from 07/2023 imaging.
�- Edema and subtle shift remains.
�- Continue current steroid therapy.
�- Continue Keppra for now - this may be contributing to fatigue and level is pending.
�- Seizure precautions.
�- IV Ativan as needed for any breakthrough seizures.
�- Neuro evaluation as noted above.
Abnormal LFTs
�- Unclear etiology.� LFTs have been uptrending since prior to July admission.
�- ? secondary to new med sometime between 03/2023 and 07/2023.
�- Can be due to Keppra; however, LFTs already trending up prior to initiation of this med.
�- US is unremarkable on preliminary read.
�- now improving
�- Hold statin acutely.
Mild hyponatremia
monitor
Suicidal ideation
brief episode on suicide screening; Evaluated by psych. not suicidal anymore. Per patient he said that out of frustration
Does have undiagnosed anxiety; responded to ativan
Thrombocytopenia
�- Similar to above.� Seems likely this is related to some med / treatment initiated between 03/26 and 07/28.
�- Review in more detail with family in AM to try and identify culprit.� ? secondary to chemoradiation started in April.
�- No evidence of active bleeding.
�- Follow for changes.
Benign Hypertension
�- Stable.� Continue metoprolol.
RLE DVT
DVT Prophylaxis
�- Still with RLE edema noted on exam.
�- Continue Eliquis.
Code Status:� Full
Anticipated Discharge: Today
Subjective/Interval History
-
Date of Service: August 14, 2023
denies pain
Objective Data
-
Labs:
Laboratory Results
08/14/23 08/14/23
08:18 08:19
WBC 8.3
Hgb 15.0
Hct 41.9
Plt Count 107 L D
Sodium 133 L
Potassium 3.6
Chloride 100
Carbon Dioxide 24
BUN 12
Creatinine 0.4 L
Glucose 185 H
Calcium 8.9
Total Bilirubin 1.5 H
AST 34
ALT 305 H
Alkaline Phosphatase 204 H
Vital Signs:
Vital Signs
Temp Pulse Resp BP Pulse Ox
97.7 F 77 18 115/79 96
08/14/23 07:17 08/14/23 07:17 08/14/23 07:17 08/14/23 07:17 08/14/23 07:17
I&O
08/13/23 08/14/23 08/15/23
06:59 06:59 06:59
Intake Total 50 / 50 120 / 120
Output Total 0 / 0 700 / 700
Balance 50 / 50 -580 / -580
[2023-08-14 15:00] VITALS: BP 107/72
--- NOTE | 2023-08-14 15:12 | W.DCSUMMARY ---
Discharge Summary
Discharge Data
Date of Admission: 08/12/23
Date of Discharge: 08/14/23
-
Pending Results: No
Hospital Course
68-year-old male with past medical history of glioblastoma, seizure disorder, thrombocytopenia, hypertension, right lower extremity DVT came to the hospital with altered mental status. Patient was seen by neurology throughout hospitalization. It
was determined that patient symptoms were likely from glioblastoma with worsening vasogenic edema. MRI did show glioblastoma with worsening edema. There was also suspicion of patient having seizure however EEG was negative. Neurology thought
patient's symptoms are likely secondary to his malignancy. His Decadron was then increased to 8 mg twice daily. Given all the patient care is at [facility], family decided patient to be transferred to [facility] for further
management. Patient was then accepted under neurology at [facility]. While patient was in the hospital he also had suicidal ideation for which she was seen by psychiatry. Patient reported that he was frustrated and that is why he had
those ideation. Once patient had a bed at [facility] he was then transferred there for further care.
Discharge Plan
-
Patient Disposition: Other
Discharge Diagnosis/Procedures: Change in mental status
Glioblastoma with vasogenic edema
Elevated liver function test
Diet: Regular
Activity: As tolerated
Driving Restrictions: No driving
Bathing Restrictions: None
Activity Restrictions/Additional Instructions:
Please follow-up with all your physicians at [facility]
Referrals:
Socorro Murcia DO [Family Provider] - in less than 1 week
Prescriptions:
New
dexamethasone sodium phosphate 4 mg/mL Solution
8 mg IV Q12H Qty: 0 0RF
thiamine HCl (vitamin B1) 100 mg/mL Solution
100 mg IV DAILY Qty: 0 0RF
Continued
metoprolol succinate 25 MG tablet extended release 24 hr
25 mg PO DAILY Qty: 90 3RF
levetiracetam [Keppra] 1,000 mg tablet
1,000 mg PO BID Qty: 60 1RF
Eliquis 5 mg tablet
5 mg PO BID Qty: 60 0RF
Held
ondansetron HCl 8 mg Tablet
8 mg PO Q8H PRN (Reason: nausea)
Hold Instructions: Until instructed by physician at [place]
famotidine 20 mg Tablet
20 mg PO BID
Hold Instructions: Until instructed by physician at [place]
atorvastatin 80 MG tablet
80 mg PO QPM
Hold Instructions: until LFT's normalize
zolpidem [Ambien] 5 mg Tablet
5 mg PO HS PRN (Reason: insomnia)
Hold Instructions: Until instructed by physician at [place]
Patient Comments:
08/12/2023: last filled 07/05/23, 30 tabs for 30 days from [facility]
Discontinued
dexamethasone 6 mg Tablet
6 mg PO BID@0800,1500
Discharge Orders:
Discharge Patient (As Directed); Ordered 08/13/23
Ordered By: Renaldo Street
Discharge Date and Time
Discharge Date/Time: 08/14/23 19:43
--- NOTE | 2023-08-14 15:55 | CM ---
CM received consult for suicide ideation, psych consulted. Per Psych, no S.I. today, no psychiatric intervention needed. Patient and seen bedside, offered support. Per , plan for transfer to [place], 6:30 p.m. ambulance transport. CM will
continue to follow for discharge planning needs.
Plan; transfer to [place], 6:30 p.m. ambulance transport.
[2023-08-14] MEDS: MORPHINE SULFATE 1 MG IV (16:17)
[2023-08-14] MEDS: FLUSH (NSS) 1 FLUSH IV (16:48)
== END 2023-08-14 19:43 | disposition other institution (70) | DRG 54 ==
LOC: 4 WEST ACU 03:23
PROVIDERS: ADMITTING PHYSICIAN Hospitalist; ATTENDING PHYSICIAN Internal Medicine; CONSULT PHYSICIAN Psychiatry & Neurology Neurology; EMERGENCY PHYSICIAN Emergency Medicine; FAMILY PHYSICIAN Family Medicine; OTHER PHYSICIAN Psychiatry & Neurology Psychiatry
DX: C71.9 Malignant neoplasm of brain, unspecified (principal); G92.8 Other toxic encephalopathy; G93.6 Cerebral edema; R45.851 Suicidal ideations; R41.82 Altered mental status, unspecified; Z11.52 Encounter for screening for COVID-19; Z79.01 Long term (current) use of anticoagulants; Z85.841 Personal history of malignant neoplasm of brain; G40.909 Epilepsy, unspecified, not intractable, without status epilepticus; D69.6 Thrombocytopenia, unspecified; I10 Essential (primary) hypertension; R79.89 Other specified abnormal findings of blood chemistry
CPT/HCPCS: 51701; 51798; 70450; 70553; 71046; 76700; 80053; 80177; 81003; 82140; 82248; 83605; 83690; 84439; 84443; 84484; 85025; 85027; 85610; 85730; 86308; 87040; 87502; 87811; 92610; 93005; 95812; 96360; 96361; 97167; 99285; A9575